=== PATIENT | female | born 1930 | race Caucasian/White ===

== ENCOUNTER 2016-10-27 20:51 | Inpatient (IN) | payer MEDICARE, OTHER ==
[~2016-10-27] VITALS: Ht 152.4 cm; Wt 60.8 kg
[~2016-10-27 20:51] MED LIST: ANTIVERT12.5 MG ORAL; BACITRACIN15 GM TOPIC; COUMADIN2 MG ORAL; CYCLOBENZAPRINE10 MG ORAL; DOCUSATE SODIU100 MG ORAL; LEXAPRO10 MG ORAL; LISINOPRIL40 MG ORAL; METOPROLOL SUCC50 MG ORAL; NORVASC5 MG ORAL; PRESERVISION A1 EACH PO; RANITIDINE HCL150 MG ORAL; SYSTANE 0.3-0.1 EAC1 OP; TYLENOL325 MG ORAL; XANAX0.25 MG ORAL; diclofenac TOPIC
[2016-10-28 02:15] VITALS: BP 106/49
[2016-10-28] MEDS ORDERED: ACETAMINOPHEN-1 EACH ORAL (03:05)
[2016-10-28] MEDS ORDERED: PRAVACHOL80 MG ORAL (03:05)
[2016-10-28] MEDS ORDERED: LASIX40 MG ORAL (03:05)
[2016-10-28] MEDS ORDERED: CLONIDINE HCL0.1 MG PO (03:05)
[2016-10-28] MEDS ORDERED: TRAMADOL HCL50 MG ORAL (03:05)
[2016-10-28] MEDS ORDERED: PROTONIX40 MG ORAL (03:05)
[2016-10-28] MEDS ORDERED: Warfarin Sod PO (03:05)
[2016-10-28] MEDS ORDERED: POTASSIUM CHLO10 ME3 ORAL (03:05)
[2016-10-28] MEDS ORDERED: Alprazolam PO (03:05)
[2016-10-28 04:00] VITALS: BP 112/45
[2016-10-28] MEDS ORDERED: Nitroglycerin Subl 0.4mg tab (Bottle Of 25) SL PRN (07:45)
[2016-10-28 08:00] VITALS: BP 136/52
[2016-10-28] MEDS ORDERED: ALPRAZolam 0.25mg tab ORAL PRN (08:00)
[2016-10-28] MEDS: Docusate 100mg tablet ORAL SCH (08:39)
[2016-10-28 08:59] LABS: BASOPHILS % (AUTO) 0.7 % (0.0-2.0); EOSINOPHILS % (AUTO) 0.4 % (0.0-3.0); LYMPHOCYTES % (AUTO) 18.8 % (20.0-45.0); MEAN CORPUSCULAR HEMOGLOBIN 26.7 PG (27.0-31.0); MEAN CORPUSCULAR HGB CONC 31.1 G/DL (32.0-36.0); MEAN CORPUSCULAR VOLUME 86 FL (80-99); MEAN PLATELET VOLUME 6.4 FL (6.5-10.1); MONOCYTES % (AUTO) 9.6 % (1.0-10.0); NEUTROPHILS % (AUTO) 70.4 % (45.0-75.0); PLATELET COUNT 199 K/UL (150-450); RED BLOOD COUNT 3.87 M/UL (4.20-5.40); RED CELL DISTRIBUTION WIDTH 15.4 % (11.6-14.8)
[2016-10-28 09:41] LABS: INR 3.3 (0.9-1.1); PROTHROMBIN TIME 34.6 SEC (9.30-11.50)
[2016-10-28 09:42] LABS: TROPONIN I < 0.30 ng/mL (<=0.30)
[2016-10-28 09:46] LABS: ALANINE AMINOTRANSFERASE 11 U/L (3-33); ALBUMIN/GLOBULIN RATIO 1.2 (1.0-2.7); ANION GAP 12 (5-15); ASPARTATE AMINO TRANSFERASE 20 U/L (5-40); CALCIUM 9.3 mg/dL (8.6-10.2); CARBON DIOXIDE 34 mEQ/L (20-30); CHLORIDE 101 mEQ/L (98-107); HEMOLYSIS 1; MAGNESIUM 1.8 mg/dL (1.7-2.5); PHOSPHORUS 4.2 mg/dL (2.5-4.8); POTASSIUM 3.7 mEQ/L (3.4-4.9); SODIUM 147 mEQ/L (135-145)
[2016-10-28 12:00] VITALS: BP 109/42
--- NOTE | 2016-10-28 12:13 | History & Physical ---
History and Physical History & Physicial Dictated for Int Med-Dr Gonzales no. [id number]. LUCA DUNBAR Oct 28, 2016 12:13
--- NOTE | 2016-10-28 13:33 | Diagnostic Imaging Report ---
Clinical Indication: Chest pain Technique: Spiral acquisitions obtained through the chest. No IV contrast utilized, referring physician request. Multiplanar reconstructions generated. Total dose length product 543 mGycm. CTDIvol(s) 15 mGy Comparison: None Findings:There is a large right pleural effusion, occupying most of the right hemithorax. There is near-complete atelectasis due to compression of the right lower lobe, and compressive atelectasis of significant portions of the right middle lobe. Is also some peripheral atelectasis in the right upper lobe. There is a smaller but still sizable left-sided pleural effusion, with some resultant atelectatic changes of the left lung. There is generalized interstitial congestion and diffuse groundglass opacity, likely reflecting pulmonary edema. The heart is mildly enlarged. There is a left chest pacemaker. No pericardial effusion. There are dense aortic root calcifications. There are mediastinal sutures and possibly an aortic valve prosthesis. There are enlarged paratracheal lymph nodes, the largest measuring 2.3 cm long axis dimension. Included included portions of the thyroid are unremarkable. No axillary or chest wall mass or adenopathy. There is evidence of thoracolumbar joint spinal surgery. There is mild anterior wedge compression fracture deformity of the T8 vertebral body. There are degenerative spondylosis changes. The included upper abdominal anatomy is remarkable for the presence of multiple cysts. There are gallstones incidentally noted Impression: Large bilateral pleural effusions, right greater than left. Pulmonary parenchymal compressive atelectatic changes as a result, as described Generalized interstitial congestion and diffuse groundglass opacity, nonspecific but most likely represent pulmonary edema Mild cardiomegaly Paratracheal lymphadenopathy. Appearance nonspecific, could be reactive or neoplastic Postsurgical changes, as described, including pacemaker, prior median sternotomy, prior thoracolumbar junction fusion Mild T8 compression fracture deformity, age indeterminate. Consider MRI if this is considered clinically relevant Incidental findings as noted, including hepatic cysts The CT scanner at [facility] is accredited by the [employer] and the scans are performed using protocols designed to limit radiation exposure to as low as reasonably achievable to attain images of sufficient resolution adequate for diagnostic evaluation.
--- NOTE | 2016-10-28 15:02 | Cardiac Electrophysiology PN ---
Subjective Subjective [id number] Objective Last 24 Hour Vital Signs Date Time Temp Pulse Resp B/P Pulse Ox O2 Delivery O2 Flow Rate FiO2 10/28/16 12:00 97.0 60 18 109/42 97 Nasal Cannula 2.0 63 10/28/16 11:35 65 10/28/16 08:39 60 134/52 10/28/16 08:00 97.3 63 17 136/52 97 Nasal Cannula 2.0 63 10/28/16 07:40 60 10/28/16 04:00 97.0 60 20 112/45 96 Nasal Cannula 2.0 10/28/16 04:00 60 10/28/16 02:15 97.9 60 20 106/49 97 Nasal Cannula 2.0 10/28/16 02:15 66 Intake and Output 10/27/16 10/28/16 19:00 07:00 Output Total 350 ml Balance -350 ml Output Urine Total 350 ml Laboratory Tests Test 10/28/16 08:45 White Blood Count 8.0 K/UL (4.8-10.8) Red Blood Count 3.87 M/UL (4.20-5.40) L Hemoglobin 10.3 G/DL (12.0-16.0) L Hematocrit 33.2 % (37.0-47.0) L Mean Corpuscular Volume 86 FL (80-99) Mean Corpuscular Hemoglobin 26.7 PG (27.0-31.0) L Mean Corpuscular Hemoglobin Concent 31.1 G/DL (32.0-36.0) L Red Cell Distribution Width 15.4 % (11.6-14.8) H Platelet Count 199 K/UL (150-450) Mean Platelet Volume 6.4 FL (6.5-10.1) L Neutrophils (%) (Auto) 70.4 % (45.0-75.0) Lymphocytes (%) (Auto) 18.8 % (20.0-45.0) L Monocytes (%) (Auto) 9.6 % (1.0-10.0) Eosinophils (%) (Auto) 0.4 % (0.0-3.0) Basophils (%) (Auto) 0.7 % (0.0-2.0) Prothrombin Time 34.6 SEC (9.30-11.50) H Prothromb Time International Ratio 3.3 (0.9-1.1) H Activated Partial Thromboplast Time 37 SEC (23-33) H Sodium Level 147 mEQ/L (135-145) H Potassium Level 3.7 mEQ/L (3.4-4.9) Chloride Level 101 mEQ/L (98-107) Carbon Dioxide Level 34 mEQ/L (20-30) H Anion Gap 12 (5-15) Blood Urea Nitrogen 19 mg/dL (7-23) Creatinine 1.0 mg/dL (0.5-0.9) H Estimat Glomerular Filtration Rate mL/min (>60) Glucose Level 95 mg/dL (74-106) Calcium Level 9.3 mg/dL (8.6-10.2) Phosphorus Level 4.2 mg/dL (2.5-4.8) Magnesium Level 1.8 mg/dL (1.7-2.5) Total Bilirubin 0.4 mg/dL (0.0-1.2) Aspartate Amino Transf (AST/SGOT) 20 U/L (5-40) Alanine Aminotransferase (ALT/SGPT) 11 U/L (3-33) Alkaline Phosphatase 42 U/L (35-104) Troponin I < 0.30 ng/mL (<=0.30) Pro-B-Type Natriuretic Peptide 2971 pg/mL (0-450) H Total Protein 7.0 g/dL (6.6-8.7) Albumin 3.9 g/dL (3.5-5.2) Globulin 3.1 g/dL Albumin/Globulin Ratio 1.2 (1.0-2.7) BILL GILES Oct 28, 2016 15:02
[2016-10-28 16:00] VITALS: BP 127/58
--- NOTE | 2016-10-28 16:05 | Consultation ---
History of Present Illness General Date patient seen: Oct 28, 2016 Referring physician: Dr. Gonzales Reason for Consultation: dyspnea Present Illness HPI 86 year old female with hx of CHF, pace maker who used to be on daily dose of diuretics, the dose was decreases because of the inconvenience of frequent urination. She developed gradual dyspnea and was taken to [facility] where she was diagnosed to have acute exacerbation of CHF. After initial treatment she was transferred [place] [facility] [place]. she is currently laying down flat, in no acute distress, stating that she feels much better now than a few hours ago. Allergies: Coded Allergies: No Known Allergies (Unverified , 08/30/14) Medication History Scheduled Amlodipine Besylate (Norvasc), 5 MG ORAL DAILY, (Reported) Docusate Sodium* (Docusate Sodium*), 100 MG ORAL DAILY, (Reported) Escitalopram Oxalate* (Lexapro*), 10 MG ORAL DAILY, (Reported) Furosemide* (Lasix*), 40 MG ORAL DAILY, (Reported) Lisinopril* (Lisinopril*), 40 MG ORAL BID, (Reported) Metoprolol Succinate* (Metoprolol Succinate*), 50 MG ORAL DAILY, (Reported) Pantoprazole* (Protonix*), 40 MG ORAL DAILY, (Reported) Potassium Chloride (Potassium Chloride), 10 MEQ ORAL DAILY, (Reported) Pravastatin Sod (Pravachol), 80 MG ORAL BEDTIME, (Reported) [Warfarin Sod*], 3 MG PO DAILY, (Reported) Scheduled PRN Acetaminophen (Tylenol), 500 MG ORAL Q6H PRN for Fever/Headache/Mild Pain, ( Reported) Acetaminophen With Codeine #2 Tablet (Acetaminophen With Codeine #2 Tablet), 1 TAB ORAL for For Cough, (Reported) Bacitracin (Bacitracin), 1 APPLIC TOPIC THREE TIMES A DAY PRN for wound, ( Reported) Clonidine Hcl (Clonidine Hcl), 0.1 MG PO for For High Blood Pressure, (Reported) Tramadol Hcl* (Ultram*), 100 MG ORAL for For Pain, (Reported) [Alprazolam*], 0.25 MG PO DAILY PRN for For Anxiety, (Reported) Discontinued Medications Acetaminophen (Tylenol), 650 MG ORAL Q6H PRN for For Pain Discontinued Reason: Therapy completed Alprazolam* (Xanax*), 0.125 MG ORAL BID PRN for For Anxiety, (Reported) Discontinued Reason: Prescription changed Cyclobenzaprine Hcl* (Flexeril*), 10 MG ORAL THREE TIMES A DAY Discontinued Reason: Therapy completed Meclizine Hcl* (Antivert*), 12.5 MG ORAL QHS, (Reported) Discontinued Reason: Therapy completed Propylene Glycol/Peg 400/Pf (Systane 0.3-0.4% Eye Drops), 1 EACH OP NEEDED PRN for Dry Eyes, (Reported) Discontinued Reason: Therapy completed Ranitidine Hcl* (Zantac*), 150 MG ORAL DAILY, (Reported) Discontinued Reason: Therapy completed Vit A/Vit C/Vit E/Zinc/Copper (Preservision Areds Softgel), 1 EACH PO BID, ( Reported) Discontinued Reason: Therapy completed Warfarin Sod* (Coumadin*), 4 MG ORAL DAILY, (Reported) Discontinued Reason: Prescription changed [diclofenac], 3 % TOPIC 4x/day PRN for For Pain, (Reported) Discontinued Reason: Therapy completed Patient History Healthcare decision maker Resuscitation status Full Code Advanced Directive on File Past Medical/Surgical History Past Medical/Surgical History: (1) CHF (congestive heart failure) (2) Pacemaker Review of Systems All Other Systems: negative except mentioned in HPI Physical Exam General Appearance: WD/WN, mild distress Lines, tubes and drains: central line Neck: normal alignment Breasts: no masses Cardiovascular/Chest: normal peripheral pulses Abdomen: normal bowel sounds, non tender Genitourinary/Rectal: normal genital exam Last 24 Hour Vital Signs Date Time Temp Pulse Resp B/P Pulse Ox O2 Delivery O2 Flow Rate FiO2 10/28/16 12:00 97.0 60 18 109/42 97 Nasal Cannula 2.0 63 10/28/16 11:35 65 10/28/16 08:39 60 134/52 10/28/16 08:00 97.3 63 17 136/52 97 Nasal Cannula 2.0 63 10/28/16 07:40 60 10/28/16 04:00 97.0 60 20 112/45 96 Nasal Cannula 2.0 10/28/16 04:00 60 10/28/16 02:15 97.9 60 20 106/49 97 Nasal Cannula 2.0 10/28/16 02:15 66 Intake and Output 10/27/16 10/28/16 19:00 07:00 Output Total 350 ml Balance -350 ml Output Urine Total 350 ml Laboratory Tests Test 10/28/16 08:45 White Blood Count 8.0 K/UL (4.8-10.8) Red Blood Count 3.87 M/UL (4.20-5.40) L Hemoglobin 10.3 G/DL (12.0-16.0) L Hematocrit 33.2 % (37.0-47.0) L Mean Corpuscular Volume 86 FL (80-99) Mean Corpuscular Hemoglobin 26.7 PG (27.0-31.0) L Mean Corpuscular Hemoglobin Concent 31.1 G/DL (32.0-36.0) L Red Cell Distribution Width 15.4 % (11.6-14.8) H Platelet Count 199 K/UL (150-450) Mean Platelet Volume 6.4 FL (6.5-10.1) L Neutrophils (%) (Auto) 70.4 % (45.0-75.0) Lymphocytes (%) (Auto) 18.8 % (20.0-45.0) L Monocytes (%) (Auto) 9.6 % (1.0-10.0) Eosinophils (%) (Auto) 0.4 % (0.0-3.0) Basophils (%) (Auto) 0.7 % (0.0-2.0) Prothrombin Time 34.6 SEC (9.30-11.50) H Prothromb Time International Ratio 3.3 (0.9-1.1) H Activated Partial Thromboplast Time 37 SEC (23-33) H Sodium Level 147 mEQ/L (135-145) H Potassium Level 3.7 mEQ/L (3.4-4.9) Chloride Level 101 mEQ/L (98-107) Carbon Dioxide Level 34 mEQ/L (20-30) H Anion Gap 12 (5-15) Blood Urea Nitrogen 19 mg/dL (7-23) Creatinine 1.0 mg/dL (0.5-0.9) H Estimat Glomerular Filtration Rate mL/min (>60) Glucose Level 95 mg/dL (74-106) Calcium Level 9.3 mg/dL (8.6-10.2) Phosphorus Level 4.2 mg/dL (2.5-4.8) Magnesium Level 1.8 mg/dL (1.7-2.5) Total Bilirubin 0.4 mg/dL (0.0-1.2) Aspartate Amino Transf (AST/SGOT) 20 U/L (5-40) Alanine Aminotransferase (ALT/SGPT) 11 U/L (3-33) Alkaline Phosphatase 42 U/L (35-104) Troponin I < 0.30 ng/mL (<=0.30) Pro-B-Type Natriuretic Peptide 2971 pg/mL (0-450) H Total Protein 7.0 g/dL (6.6-8.7) Albumin 3.9 g/dL (3.5-5.2) Globulin 3.1 g/dL Albumin/Globulin Ratio 1.2 (1.0-2.7) Height (Feet): 5 Weight (Pounds): 138 Medications Current Medications Medications (Trade) Dose Ordered Sig/Nataliia Route PRN Reason Start Time Stop Time Status Last Admin Dose Admin Acetaminophen 650 mg 650 mg Q6H PRN ORAL Mild Pain/Temp > 100.5 10/28/16 08:00 11/27/16 07:59 Alprazolam (Xanax) 0.25 mg DAILY PRN ORAL For Anxiety 10/28/16 08:00 11/04/16 07:59 Azithromycin (Zithromax) 250 mg Q24H ORAL 10/28/16 21:00 10/31/16 21:01 Ceftriaxone Sodium/Dextrose (Rocephin/D5W) 55 ml @ 110 mls/hr Q24H IVPB 10/28/16 20:00 11/04/16 19:59 Clonidine HCl (Catapres) 0.1 mg EVERY 6 HOURS PRN ORAL For High Blood Pressure 10/28/16 08:00 11/27/16 07:59 Dextrose (Dextrose 50%) STAT PRN IV Hypoglycemia 10/28/16 07:45 11/27/16 07:44 Docusate Sodium (Colace) 100 mg DAILY ORAL 10/28/16 09:00 11/27/16 08:59 10/28/16 08:39 Escitalopram Oxalate (Lexapro) 10 mg DAILY ORAL 10/28/16 09:00 11/27/16 08:59 10/28/16 08:39 Furosemide (Lasix) 20 mg BID IV 10/28/16 09:00 11/27/16 08:59 10/28/16 08:39 Metoprolol Succinate (Toprol XL) 50 mg DAILY ORAL 10/28/16 09:00 11/27/16 08:59 10/28/16 08:39 Multivitamins (Multivitamins) 1 tab DAILY ORAL 10/28/16 09:00 11/27/16 08:59 10/28/16 08:39 Nitroglycerin (Ntg) 0.4 mg Q5M PRN SL Prn Chest Pain 10/28/16 07:45 11/27/16 07:44 Pantoprazole (Protonix) 40 mg DAILY ORAL 10/28/16 09:00 11/27/16 08:59 10/28/16 08:39 Potassium Chloride (K-Dur) 10 meq DAILY ORAL 10/28/16 09:00 11/27/16 08:59 10/28/16 08:46 Pravastatin Sodium (Pravachol) 80 mg BEDTIME ORAL 10/28/16 21:00 11/27/16 20:59 Tramadol HCl (Ultram) 100 mg EVERY 8 HOURS PRN ORAL Moderate Pain (Pain Scale 4-6) 10/28/16 08:00 11/04/16 07:59 Warfarin Sodium (Coumadin per pharmacy) 1 ea DAILY PRN MISC Per rx protocol 10/28/16 08:00 11/27/16 07:59 Assessment/Plan Problem List: (1) SOB (shortness of breath) ICD Codes: R06.02 - Shortness of breath SNOMED: 133055210 (2) CHF (congestive heart failure) ICD Codes: I50.9 - Heart failure, unspecified SNOMED: 84664890 (3) Pacemaker ICD Codes: Z95.0 - Presence of cardiac pacemaker SNOMED: 316331240, 564767815 Assessment/Plan cxr stat f/u electrolytes and intake/output diuretics respiratory treatment dvt prophylaxis echo cardiogram repeat cxr in a few days. RUSS ANDRADE Oct 28, 2016 16:05
--- NOTE | 2016-10-28 16:41 | Diagnostic Imaging Report ---
Indication: DYSPNEA Technique: One view of the chest Comparison: 08/30/2014, also chest CT of earlier the same day Findings: Interim development of bilateral pleural effusions, larger on the right on the left. There is interstitial edema. The heart is mildly enlarged. There is a left chest pacemaker. There are median sternotomy sutures. Findings are similar to those described on prior CT Impression: Bilateral pleural effusions, right greater than left Interstitial edema
--- NOTE | 2016-10-28 17:09 | History and Physical Report ---
DATE OF ADMISSION: 10/28/2016 CHIEF COMPLAINT: The patient is an 86-year-old, Georgian speaking female, who presents with complaint of shortness of breath. HISTORY OF PRESENT ILLNESS: The patient has a history of congestive heart failure. The patient is status post heart valve replacement, however, she is unsure of which heart valve was replaced. The patient states she became short of breath yesterday about 1 p.m. She was unable to walk more than a few steps. The patient was initially transported to [facility] emergency room. The patient was transferred to [facility] for insurance purposes. The patient is admitted for shortness of breath and congestive heart failure. REVIEW OF SYSTEMS: Constitutional: The patient denies weight loss or weight gain. The patient denies fevers or chills. HEENT: The patient denies ear or throat pain. The patient denies headache. Cardiovascular: The patient denies palpitation or chest pain. Chest: The patient complains of shortness of breath as above. The patient denies wheezing. Abdominal: The patient denies nausea, vomiting, diarrhea, or constipation. Genitourinary: The patient denies dysuria or increased frequency of urination. Neuromuscular: The patient denies seizures or generalized weakness. PAST MEDICAL HISTORY: Significant for, 1. Hypertension. 2. Congestive heart failure. PAST SURGICAL HISTORY: Significant for, 1. Heart valve replacement, however, the patient is unsure which valve was replaced. 2. Pacemaker implantation. CURRENT MEDICATIONS: 1. Nitroglycerin 1 inch applied daily. 2. Norvasc 5 mg one tablet p.o. daily. 3. Colace 100 mg one tablet p.o. daily. 4. Protonix 40 mg one tablet p.o. daily. 5. Lasix 40 mg one tablet p.o. daily. 6. Potassium chloride 10 mEq one tablet p.o. daily. 7. Lexapro 10 mg one tablet p.o. daily. 8. Coumadin 3 mg one tablet p.o. daily. 9. Pravachol 80 mg one tablet p.o. daily. 10. Metoprolol 50 mg one tablet p.o. daily. 11. Xanax 0.25 mg one tablet p.o. p.r.n. anxiety. 12. Tramadol 50 mg one tablet p.o. daily. 13. Clonidine 0.1 mg one tablet p.o. p.r.n. ALLERGIES: No known drug allergies. SOCIAL HISTORY: The patient is a and lives alone. The patient has caregivers 8 hours daily. The patient denies tobacco or alcohol use. PHYSICAL EXAMINATION: VITAL SIGNS: Temperature 97.0, respirations 20, pulse 60, blood pressure 112/45, and pulse oximetry 96% on 2 liters of nasal cannula. GENERAL: The patient is a well-developed, well-nourished, white female, in no apparent distress. HEENT: Eyes, pupils are equal and responsive to light and accommodation. Extraocular movements are intact. NECK: Supple without lymphadenopathy. CHEST: Few crackles on the right lung base, otherwise, clear to auscultation bilaterally without wheezes or rales. CARDIOVASCULAR: Regular rhythm and rate. S1 and S2 are normal without murmurs, rubs, or gallops. ABDOMEN: Soft, nontender, and nondistended. Positive bowel sounds. No evidence of hepatosplenomegaly. No rebound or guarding noted. EXTREMITIES: Negative for clubbing, cyanosis, or edema. RECTAL/GENITAL: Refused. NEUROLOGIC: Cranial nerves II through XII are grossly intact without focal deficits. Motor strength is 5/5 bilaterally. Deep tendon reflexes are 2+ plantar. LABORATORY STUDIES: WBC 8.0, hemoglobin 10.3, hematocrit 33.2, and platelets 199,000. Sodium 127, potassium 3.7, chloride 101, CO2 34, BUN 19, creatinine 1.0, and glucose 95. BNP elevated at 2971 and troponin 7.3. Chest x-ray is pending. ASSESSMENT: This is a 86-year-old white female with, 1. Shortness of breath. 2. Congestive heart failure. 3. Hypertension. 4. Shortness of breath. 5. Congestive heart failure. 6. Hypertension. 7. Hypercholesterolemia. 8. Depression. TREATMENT: 1. Shortness of breath/congestive heart failure. Cardiology consultation is pending with Dr. Juan Miguel Cordero. An echocardiogram is pending. We will follow recommendations of Cardiology. Serial troponin and BNP will be performed. 2. Hypertension. Continue metoprolol as above. 3. Hypercholesteremia. Continue Pravachol as above. 4. Depression. Continue Lexapro as above. Carmine Malcolm M.D. DR: TYREE JOB#: [id number] CC:
[2016-10-28] MEDS: traMADol 50mg tab ORAL PRN (17:50)
--- NOTE | 2016-10-28 19:36 | Cardiology Report ---
APPROVED REPORT EXAM: Two-dimensional and M-mode echocardiogram with Doppler and color Doppler. INDICATION Congestive Heart Failure M-Mode DIMENSIONS IVSd1.4 (0.7-1.1cm)Left Atrium (MM)5.4 (1.6-4.0cm) LVDd5.2 (3.5-5.6cm)Aortic Root1.8 (2.0-3.7cm) PWd1.1 (0.7-1.1cm)Aortic Cusp Exc.1.5 (1.5-2.0cm) LVDs3.8 (2.5-4.0cm) PWs1.3 cm Technically difficult study due to poor acoustic windows Normal left ventricular chamber size, systolic function and wall motion to extent visualized. Left ventricular ejection fraction estimated to be 55 %. Mild left ventricular hypertrophy. No evidence of pericardial effusion. Possible pleural effusion. Mild left atrial size enlargement. Mild right ventricular and atrial enlargement. Left ventricle D-shape, consistent with right ventricle volume and pressure overload. Mild focal aortic valve sclerosis with adequate cusp excursion. Moderately thickened mitral valve leaflets with minimal excursion. Heavy mitral annulus and aortic root calcification. Normal pulmonic valve structure. Normal tricuspid valve structure. Probable pacemaker wire present in the right side chambers. IVC dilated at 2.4 cm with minimal physiological collapse, estimated RAP is 15 mmHg. A color flow and spectral Doppler study was performed and revealed: Mild aortic insufficiency. Severe mitral regurgitation. Mitral P1/2 time of 116 m/s is compatible with a mitral valve area of 1.9 cm2. Peak mitral valve diastolic gradient of 18 mmHg and a mean gradient of 5 mmHg. Mild mitral stenosis. Left ventricular diastolic function could not be determined due to A-Fib. Severe, tricuspid regurgitation. Tricuspid systolic velocities suggests peak right ventricular systolic pressure of 98 mmHg, consistent with severe pulmonary hypertension. Severe pulmonic regurgitation present.
[2016-10-28 20:00] VITALS: BP 145/55
[2016-10-28] MEDS: Azithromycin 250mg tab ORAL SCH (20:52)
[2016-10-28] MEDS: cefTRIAXone 1 GM in D5W 55 ML IVPB SCH (20:53)
--- NOTE | 2016-10-28 22:29 | Consultation ---
DATE OF CONSULTATION: 10/28/2016 CARDIOLOGY ELECTROPHYSIOLOGY CONSULTATION CONSULTING PHYSICIAN: Tong Márquez M.D. REFERRING PHYSICIAN: Tony Gonzales M.D. REASON FOR CONSULTATION: Management of congestive heart failure, valve replacement, atrial fibrillation, hypertension, and congestive heart failure. HISTORY OF PRESENT ILLNESS: The patient is a very pleasant 86-year-old Afghan lady with history of hypertension, congestive heart failure as well as history of pacemaker as well as valve replacement, who was taken to [facility] for increasing shortness of breath. 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 The patient was evaluated at [place] and then was transferred to [facility] for further evaluation. At the time of my evaluation, the patient is feeling better. Denies any chest pain and shortness of breath is improving. PAST MEDICAL HISTORY: 1. Hypertension. 2. Pacemaker. 3. Congestive heart failure. 4. History of valve replacement, but the patient and family do not know which valve. MEDICATIONS: As an outpatient include: 1. Norvasc. 2. Protonix. 3. Lasix. 4. Warfarin. 5. Pravachol. 6. Toprol-XL 50 mg. 7. Clonidine. ALLERGIES: She has no known drug allergies. SOCIAL HISTORY: She lives at home with a caregiver. She does not smoke or drink alcohol. FAMILY HISTORY: Noncontributory. REVIEW OF SYSTEMS: Review of system was performed and was negative other than what was mentioned in the history of present illness. PHYSICAL EXAMINATION: VITAL SIGNS: Blood pressure is 109/42, pulse 60, respirations 18, and she is afebrile. HEAD AND NECK: Mild JVD. LUNGS: Clear. CARDIOVASCULAR: Shows sternotomy is intact. The left subclavian pacemaker is intact. ABDOMEN: Soft. EXTREMITIES: Have no pitting edema. LABORATORY AND DIAGNOSTIC DATA: Her EKG showed underlying atrial fibrillation, ventricular paced rhythm. Her labs show white count of 8, hemoglobin 10.2, hematocrit 33, and platelet count is 199,000. Sodium 147, potassium 3.7, BUN 9, creatinine 1, and glucose 95. BNP 3971. Troponin is negative and her INR is 3.3. ASSESSMENT AND PLAN: 1. Status post valve replacement. The nature of the valve is not clear at this time. I am not sure if it is a prosthetic valve or porcine or bovine valve. Regardless, the patient is on full anticoagulation with Coumadin and especially that she also has atrial fibrillation. We will get echocardiogram for further evaluation. 2. Congestive heart failure. Start the patient on Lasix 40 mg IV b.i.d. Continue to follow the patient clinically. 3. Atrial fibrillation. The rate is controlled on Toprol-XL 50 mg daily. mostly paced. Continue anticoagulation with Coumadin per pharmacy. 4. Hypertension. Continue Toprol and p.r.n. clonidine. 5. pneumonia, on Zithromax and Rocephin. 6. Hyperlipidemia, on Pravachol. Thank you very much, Dr. Gonzales, for allowing me to participate in the care of this patient. Please do not hesitate to contact me for any questions regarding my evaluation. Tong Márquez M.D. DR: MAURA JOB#: [id number] CC:
[2016-10-29 00:31] VITALS: BP 110/55
[2016-10-29 04:12] VITALS: BP 120/78
[2016-10-29] MEDS ORDERED: Miralax 17gm pkt ORAL PRN (06:15)
[2016-10-29 08:14] VITALS: BP 145/59
[2016-10-29] MEDS: traMADol 50mg tab ORAL PRN (09:06)
[2016-10-29] MEDS: Docusate 100mg tablet ORAL SCH (09:07)
[2016-10-29 09:40] LABS: BASOPHILS % (AUTO) 0.7 % (0.0-2.0); LYMPHOCYTES % (AUTO) 12.3 % (20.0-45.0); MEAN CORPUSCULAR HEMOGLOBIN 27.1 PG (27.0-31.0); MEAN CORPUSCULAR VOLUME 87 FL (80-99); MEAN PLATELET VOLUME 6.8 FL (6.5-10.1); PLATELET COUNT 206 K/UL (150-450); RED BLOOD COUNT 3.74 M/UL (4.20-5.40); RED CELL DISTRIBUTION WIDTH 15.4 % (11.6-14.8); WHITE BLOOD COUNT 8.8 K/UL (4.8-10.8)
[2016-10-29 09:49] LABS: INR 2.6 (0.9-1.1); PROTHROMBIN TIME 27.6 SEC (9.30-11.50)
[2016-10-29 09:53] LABS: ANION GAP 9 (5-15); CARBON DIOXIDE 37 mEQ/L (20-30); CHLORIDE 97 mEQ/L (98-107); HEMOLYSIS 1; POTASSIUM 3.8 mEQ/L (3.4-4.9); SODIUM 143 mEQ/L (135-145)
[2016-10-29 10:27] LABS: TROPONIN I < 0.30 ng/mL (<=0.30)
[2016-10-29] MEDS ORDERED: DuoNeb 0.5-3(2.5)mg/3ml neb HHN PRN (11:30)
[2016-10-29 11:38] VITALS: BP 148/69
--- NOTE | 2016-10-29 15:35 | Pulmonology Progress Note ---
Assessment/Plan Problems: (1) SOB (shortness of breath) (2) Pleural effusion (3) Pacemaker (4) CHF (congestive heart failure) Assessment/Plan continue diuresis watch intake and output check electrolytes f/u cxr and bnp in am Subjective ROS Limited/Unobtainable: No Interval Events: c/o epigastric pain Constitutional: Reports: no symptoms Allergies: Coded Allergies: No Known Allergies (Unverified , 08/30/14) Objective Last 24 Hour Vital Signs Date Time Temp Pulse Resp B/P Pulse Ox O2 Delivery O2 Flow Rate FiO2 10/29/16 12:00 60 10/29/16 11:39 62 20 97 Nasal Cannula 2.0 28 10/29/16 11:38 97.5 60 18 148/69 95 Nasal Cannula 2.0 10/29/16 11:30 97 Nasal Cannula 2.0 10/29/16 11:30 60 18 Nasal Cannula 2.0 10/29/16 11:30 60 18 97 Nasal Cannula 2.0 10/29/16 11:30 Nasal Cannula 2.0 10/29/16 09:07 62 145/59 10/29/16 08:14 97.0 62 18 145/59 97 Nasal Cannula 2.0 10/29/16 08:00 60 10/29/16 04:12 97.6 64 24 120/78 96 Nasal Cannula 2.0 10/29/16 04:00 60 10/29/16 00:31 97.5 60 20 110/55 96 Nasal Cannula 2.0 10/28/16 20:00 60 10/28/16 20:00 97.3 60 19 145/55 89 Room Air 10/28/16 19:00 97.5 10/28/16 16:00 97.5 77 19 127/58 Nasal Cannula 2.0 98 Intake and Output 10/28/16 10/29/16 19:00 07:00 Intake Total 350 ml 110 ml Output Total 650 ml 1600 ml Balance -300 ml -1490 ml Intake Oral 350 ml IV Total 110 ml Output Urine Total 650 ml 1600 ml General Appearance: WD/WN HEENT: normocephalic, atraumatic Respiratory/Chest: chest wall non-tender, lungs clear Cardiovascular: normal peripheral pulses, normal rate Abdomen: normal bowel sounds, no organomegaly Genitourinary: normal external genitalia Extremities: no cyanosis Skin: no rash Laboratory Tests 10/29/16 09:00: White Blood Count 8.8, Red Blood Count 3.74L, Hemoglobin 10.1L, Hematocrit 32.7L , Mean Corpuscular Volume 87, Mean Corpuscular Hemoglobin 27.1, Mean Corpuscular Hemoglobin Concent 31.0L, Red Cell Distribution Width 15.4H, Platelet Count 206, Mean Platelet Volume 6.8, Neutrophils (%) (Auto) 77.0H, Lymphocytes (%) (Auto) 12.3L, Monocytes (%) (Auto) 10.0, Eosinophils (%) (Auto) 0.0, Basophils (%) (Auto) 0.7, Prothrombin Time 27.6H, Prothromb Time International Ratio 2.6H, Sodium Level 143, Potassium Level 3.8, Chloride Level 97L, Carbon Dioxide Level 37H, Anion Gap 9, Blood Urea Nitrogen 23, Creatinine 1.0H, Estimat Glomerular Filtration Rate , Glucose Level 103, Calcium Level 9.0 , Troponin I < 0.30, Pro-B-Type Natriuretic Peptide 2251H Current Medications Medications (Trade) Dose Ordered Sig/Nataliia Route PRN Reason Start Time Stop Time Status Last Admin Dose Admin Acetaminophen 650 mg 650 mg Q6H PRN ORAL Mild Pain/Temp > 100.5 10/28/16 08:00 11/27/16 07:59 Albuterol/ Ipratropium (DuoNeb 0.5-3(2.5)mg/3ml) 3 ml Q4H PRN HHN Shortness of Breath 10/29/16 11:30 11/03/16 11:29 10/29/16 11:30 Alprazolam (Xanax) 0.25 mg DAILY PRN ORAL For Anxiety 10/28/16 08:00 11/04/16 07:59 Azithromycin (Zithromax) 250 mg Q24H ORAL 10/28/16 21:00 10/31/16 21:01 10/28/16 20:52 Ceftriaxone Sodium/Dextrose (Rocephin/D5W) 55 ml @ 110 mls/hr Q24H IVPB 10/28/16 20:00 11/04/16 19:59 10/28/16 20:53 Clonidine HCl (Catapres) 0.1 mg EVERY 6 HOURS PRN ORAL For High Blood Pressure 10/28/16 08:00 11/27/16 07:59 Dextrose (Dextrose 50%) STAT PRN IV Hypoglycemia 10/28/16 07:45 11/27/16 07:44 Docusate Sodium (Colace) 100 mg DAILY ORAL 10/28/16 09:00 11/27/16 08:59 10/29/16 09:07 Escitalopram Oxalate (Lexapro) 10 mg DAILY ORAL 10/28/16 09:00 11/27/16 08:59 10/29/16 09:07 Furosemide (Lasix) 20 mg BID IV 10/28/16 09:00 11/27/16 08:59 10/29/16 09:14 Metoprolol Succinate (Toprol XL) 50 mg DAILY ORAL 10/28/16 09:00 11/27/16 08:59 10/29/16 09:07 Multivitamins (Multivitamins) 1 tab DAILY ORAL 10/28/16 09:00 11/27/16 08:59 10/29/16 09:07 Nitroglycerin (Ntg) 0.4 mg Q5M PRN SL Prn Chest Pain 10/28/16 07:45 11/27/16 07:44 Pantoprazole (Protonix) 40 mg DAILY ORAL 10/28/16 09:00 11/27/16 08:59 10/29/16 09:13 Polyethylene Glycol (Miralax) 17 gm DAILY PRN ORAL Constipation 10/29/16 06:15 11/28/16 06:14 10/29/16 06:20 Potassium Chloride (K-Dur) 10 meq DAILY ORAL 10/28/16 09:00 11/27/16 08:59 10/29/16 09:06 Pravastatin Sodium (Pravachol) 80 mg BEDTIME ORAL 10/28/16 21:00 11/27/16 20:59 10/28/16 20:52 Tramadol HCl (Ultram) 100 mg EVERY 8 HOURS PRN ORAL Moderate Pain (Pain Scale 4-6) 10/28/16 08:00 11/04/16 07:59 10/29/16 09:06 Warfarin Sodium (Coumadin per pharmacy) 1 ea DAILY PRN MISC Per rx protocol 10/28/16 08:00 11/27/16 07:59 Warfarin Sodium (Coumadin) 3 mg COUMADIN ONCE ORAL 10/29/16 17:00 10/29/16 17:01 RUSS ANDRADE Oct 29, 2016 15:35
--- NOTE | 2016-10-29 15:40 | Internal Med Progress Note ---
Subjective Date of Service: Oct 29, 2016 Physician Name Luca Dunbar Attending Physician Tony Gonzales MD Current Medications Medications (Trade) Dose Ordered Sig/Nataliia Route PRN Reason Start Time Stop Time Status Last Admin Dose Admin Acetaminophen 650 mg 650 mg Q6H PRN ORAL Mild Pain/Temp > 100.5 10/28/16 08:00 11/27/16 07:59 Albuterol/ Ipratropium (DuoNeb 0.5-3(2.5)mg/3ml) 3 ml Q4H PRN HHN Shortness of Breath 10/29/16 11:30 11/03/16 11:29 10/29/16 11:30 Alprazolam (Xanax) 0.25 mg DAILY PRN ORAL For Anxiety 10/28/16 08:00 11/04/16 07:59 Azithromycin (Zithromax) 250 mg Q24H ORAL 10/28/16 21:00 10/31/16 21:01 10/28/16 20:52 Ceftriaxone Sodium/Dextrose (Rocephin/D5W) 55 ml @ 110 mls/hr Q24H IVPB 10/28/16 20:00 11/04/16 19:59 10/28/16 20:53 Clonidine HCl (Catapres) 0.1 mg EVERY 6 HOURS PRN ORAL For High Blood Pressure 10/28/16 08:00 11/27/16 07:59 Dextrose (Dextrose 50%) STAT PRN IV Hypoglycemia 10/28/16 07:45 11/27/16 07:44 Docusate Sodium (Colace) 100 mg DAILY ORAL 10/28/16 09:00 11/27/16 08:59 10/29/16 09:07 Escitalopram Oxalate (Lexapro) 10 mg DAILY ORAL 10/28/16 09:00 11/27/16 08:59 10/29/16 09:07 Furosemide (Lasix) 20 mg BID IV 10/28/16 09:00 11/27/16 08:59 10/29/16 09:14 Metoprolol Succinate (Toprol XL) 50 mg DAILY ORAL 10/28/16 09:00 11/27/16 08:59 10/29/16 09:07 Multivitamins (Multivitamins) 1 tab DAILY ORAL 10/28/16 09:00 11/27/16 08:59 10/29/16 09:07 Nitroglycerin (Ntg) 0.4 mg Q5M PRN SL Prn Chest Pain 10/28/16 07:45 11/27/16 07:44 Pantoprazole (Protonix) 40 mg DAILY ORAL 10/28/16 09:00 11/27/16 08:59 10/29/16 09:13 Polyethylene Glycol (Miralax) 17 gm DAILY PRN ORAL Constipation 10/29/16 06:15 11/28/16 06:14 10/29/16 06:20 Potassium Chloride (K-Dur) 10 meq DAILY ORAL 10/28/16 09:00 11/27/16 08:59 10/29/16 09:06 Pravastatin Sodium (Pravachol) 80 mg BEDTIME ORAL 10/28/16 21:00 11/27/16 20:59 10/28/16 20:52 Tramadol HCl (Ultram) 100 mg EVERY 8 HOURS PRN ORAL Moderate Pain (Pain Scale 4-6) 10/28/16 08:00 11/04/16 07:59 10/29/16 09:06 Warfarin Sodium (Coumadin per pharmacy) 1 ea DAILY PRN MISC Per rx protocol 10/28/16 08:00 11/27/16 07:59 Warfarin Sodium (Coumadin) 3 mg COUMADIN ONCE ORAL 10/29/16 17:00 10/29/16 17:01 Allergies: Coded Allergies: No Known Allergies (Unverified , 08/30/14) ROS Limited/Unobtainable: No Constitutional: Reports: no symptoms HEENT: Reports: no symptoms Cardiovascular: Reports: no symptoms Respiratory: Reports: shortness of breath Gastrointestinal/Abdominal: Reports: no symptoms Genitourinary: Reports: no symptoms Neurologic/Psychiatric: Reports: no symptoms Subjective 86 YO F admitted for shortness of Breath, now congestive heart failure. Cover for Juan Gonzales. Objective Last Vital Signs Date Time Temp Pulse Resp B/P Pulse Ox O2 Delivery O2 Flow Rate FiO2 10/29/16 12:00 60 10/29/16 11:39 20 97 Nasal Cannula 2.0 28 10/29/16 11:38 97.5 148/69 General Appearance: no apparent distress, alert, mild distress EENT: PERRL/EOMI, normal ENT inspection, TMs normal Neck: non-tender, normal alignment, supple Cardiovascular: normal peripheral pulses, normal rate, regular rhythm, no gallop/murmur, no JVD Respiratory/Chest: chest wall non-tender, crackles/rales, rhonchi - bilaterally Abdomen: normal bowel sounds, non tender, soft, no organomegaly, no mass Extremities: normal range of motion, non-tender Neurologic: washer operator II-XII grossly normal, no motor/sensory deficits Skin: normal pigmentation, warm/dry Laboratory Tests Test 10/29/16 09:00 White Blood Count 8.8 K/UL (4.8-10.8) Red Blood Count 3.74 M/UL (4.20-5.40) L Hemoglobin 10.1 G/DL (12.0-16.0) L Hematocrit 32.7 % (37.0-47.0) L Mean Corpuscular Volume 87 FL (80-99) Mean Corpuscular Hemoglobin 27.1 PG (27.0-31.0) Mean Corpuscular Hemoglobin Concent 31.0 G/DL (32.0-36.0) L Red Cell Distribution Width 15.4 % (11.6-14.8) H Platelet Count 206 K/UL (150-450) Mean Platelet Volume 6.8 FL (6.5-10.1) Neutrophils (%) (Auto) 77.0 % (45.0-75.0) H Lymphocytes (%) (Auto) 12.3 % (20.0-45.0) L Monocytes (%) (Auto) 10.0 % (1.0-10.0) Eosinophils (%) (Auto) 0.0 % (0.0-3.0) Basophils (%) (Auto) 0.7 % (0.0-2.0) Prothrombin Time 27.6 SEC (9.30-11.50) H Prothromb Time International Ratio 2.6 (0.9-1.1) H Sodium Level 143 mEQ/L (135-145) Potassium Level 3.8 mEQ/L (3.4-4.9) Chloride Level 97 mEQ/L (98-107) L Carbon Dioxide Level 37 mEQ/L (20-30) H Anion Gap 9 (5-15) Blood Urea Nitrogen 23 mg/dL (7-23) Creatinine 1.0 mg/dL (0.5-0.9) H Estimat Glomerular Filtration Rate mL/min (>60) Glucose Level 103 mg/dL (74-106) Calcium Level 9.0 mg/dL (8.6-10.2) Troponin I < 0.30 ng/mL (<=0.30) Pro-B-Type Natriuretic Peptide 2251 pg/mL (0-450) H Intake and Output 10/28/16 10/29/16 19:00 07:00 Intake Total 350 ml 110 ml Output Total 650 ml 1600 ml Balance -300 ml -1490 ml Intake Oral 350 ml IV Total 110 ml Output Urine Total 650 ml 1600 ml Assessment/Plan Problem List: (1) Pleural effusion Assessment & Plan: Bilateral R>L. See pulmonary note. (2) HTN (hypertension) Assessment & Plan: Cont toprol XL (3) Pleural effusion Assessment & Plan: See Pulmonary note. (4) Hypercholesteremia (5) Major depression (6) SOB (shortness of breath) (7) CHF (congestive heart failure) Assessment & Plan: LVEF=55%. see cardiology note. Continue lasix. (8) Pneumonia Assessment & Plan: Continue azithromycin and ceftriaxone. (9) Heart valve replaced Status: not improved LUCA DUNBAR Oct 29, 2016 15:40
[2016-10-29 16:00] VITALS: BP 130/65
--- NOTE | 2016-10-29 16:05 | Cardiac Electrophysiology PN ---
Assessment/Plan Assessment/Plan 1. Status post valve replacement. The nature of the valve is not clear at this time. I am not sure if it is a prosthetic valve or porcine or bovine valve. Regardless, the patient is on full anticoagulation with Coumadin and especially that she also has atrial fibrillation. Echo did not mention any prosthetic valve. 2. Congestive heart failure. Could be due to sevre MR and TR. EF 55%. On Lasix 40 mg IV b.i.d. 3. Atrial fibrillation. The rate is controlled on Toprol-XL 50 mg daily. Continue Coumadin 4. Hypertension. Continue Toprol and p.r.n. clonidine. 5. Pneumonia, on Zithromax and Rocephin. 6. Hyperlipidemia, on Pravachol. MOURA Subjective Subjective Still gets SOB with exertion. No chest pain. Dr Malcolm and sitgonzález at bedside. Objective Last 24 Hour Vital Signs Date Time Temp Pulse Resp B/P Pulse Ox O2 Delivery O2 Flow Rate FiO2 10/29/16 12:00 60 10/29/16 11:39 62 20 97 Nasal Cannula 2.0 28 10/29/16 11:38 97.5 60 18 148/69 95 Nasal Cannula 2.0 10/29/16 11:30 97 Nasal Cannula 2.0 28 10/29/16 11:30 60 18 Nasal Cannula 2.0 28 10/29/16 11:30 60 18 97 Nasal Cannula 2.0 28 10/29/16 11:30 Nasal Cannula 2.0 28 10/29/16 09:07 62 145/59 10/29/16 08:14 97.0 62 18 145/59 97 Nasal Cannula 2.0 10/29/16 08:00 60 10/29/16 04:12 97.6 64 24 120/78 96 Nasal Cannula 2.0 10/29/16 04:00 60 10/29/16 00:31 97.5 60 20 110/55 96 Nasal Cannula 2.0 10/28/16 20:00 60 10/28/16 20:00 97.3 60 19 145/55 89 Room Air 10/28/16 19:00 97.5 10/28/16 16:00 97.5 77 19 127/58 Nasal Cannula 2.0 98 Intake and Output 10/28/16 10/29/16 19:00 07:00 Intake Total 350 ml 110 ml Output Total 650 ml 1600 ml Balance -300 ml -1490 ml Intake Oral 350 ml IV Total 110 ml Output Urine Total 650 ml 1600 ml Laboratory Tests Test 10/29/16 09:00 White Blood Count 8.8 K/UL (4.8-10.8) Red Blood Count 3.74 M/UL (4.20-5.40) L Hemoglobin 10.1 G/DL (12.0-16.0) L Hematocrit 32.7 % (37.0-47.0) L Mean Corpuscular Volume 87 FL (80-99) Mean Corpuscular Hemoglobin 27.1 PG (27.0-31.0) Mean Corpuscular Hemoglobin Concent 31.0 G/DL (32.0-36.0) L Red Cell Distribution Width 15.4 % (11.6-14.8) H Platelet Count 206 K/UL (150-450) Mean Platelet Volume 6.8 FL (6.5-10.1) Neutrophils (%) (Auto) 77.0 % (45.0-75.0) H Lymphocytes (%) (Auto) 12.3 % (20.0-45.0) L Monocytes (%) (Auto) 10.0 % (1.0-10.0) Eosinophils (%) (Auto) 0.0 % (0.0-3.0) Basophils (%) (Auto) 0.7 % (0.0-2.0) Prothrombin Time 27.6 SEC (9.30-11.50) H Prothromb Time International Ratio 2.6 (0.9-1.1) H Sodium Level 143 mEQ/L (135-145) Potassium Level 3.8 mEQ/L (3.4-4.9) Chloride Level 97 mEQ/L (98-107) L Carbon Dioxide Level 37 mEQ/L (20-30) H Anion Gap 9 (5-15) Blood Urea Nitrogen 23 mg/dL (7-23) Creatinine 1.0 mg/dL (0.5-0.9) H Estimat Glomerular Filtration Rate mL/min (>60) Glucose Level 103 mg/dL (74-106) Calcium Level 9.0 mg/dL (8.6-10.2) Troponin I < 0.30 ng/mL (<=0.30) Pro-B-Type Natriuretic Peptide 2251 pg/mL (0-450) H Objective HEAD AND NECK: Mild JVD. LUNGS: Clear. CARDIOVASCULAR: Shows sternotomy is intact. The left subclavian pacemaker is intact. ABDOMEN: Soft. EXTREMITIES: Have no pitting edema. BILL GILES Oct 29, 2016 16:05
[2016-10-29] MEDS ORDERED: Warfarin Sodium 3mg ORAL ONE (17:00)
[2016-10-29] MEDS: Sucralfate 1gm tab ORAL SCH ×2 (17:12→20:47)
[2016-10-29 20:00] VITALS: BP 142/60
[2016-10-29] MEDS: cefTRIAXone 1 GM in D5W 55 ML IVPB SCH (20:44)
[2016-10-29] MEDS: Azithromycin 250mg tab ORAL SCH (20:46)
[2016-10-30 00:20] VITALS: BP 122/75
[2016-10-30 04:19] VITALS: BP 115/73
[2016-10-30 06:46] LABS: INR 2.3 (0.9-1.1); PROTHROMBIN TIME 24.1 SEC (9.30-11.50)
[2016-10-30 07:07] LABS: TROPONIN I < 0.30 ng/mL (<=0.30)
[2016-10-30 07:09] LABS: ALANINE AMINOTRANSFERASE 8 U/L (3-33); ALBUMIN/GLOBULIN RATIO 1.5 (1.0-2.7); ANION GAP 10 (5-15); ASPARTATE AMINO TRANSFERASE 17 U/L (5-40); CALCIUM 8.7 mg/dL (8.6-10.2); CARBON DIOXIDE 37 mEQ/L (20-30); CHLORIDE 97 mEQ/L (98-107); CREATININE 0.9 mg/dL (0.5-0.9); HEMOLYSIS 3; POTASSIUM 3.9 mEQ/L (3.4-4.9); SODIUM 144 mEQ/L (135-145); TOTAL PROTEIN 6.1 g/dL (6.6-8.7)
[2016-10-30 07:24] LABS: BASOPHILS % (AUTO) 0.9 % (0.0-2.0); LYMPHOCYTES % (AUTO) 13.9 % (20.0-45.0); MEAN CORPUSCULAR HEMOGLOBIN 26.4 PG (27.0-31.0); MEAN CORPUSCULAR HGB CONC 30.5 G/DL (32.0-36.0); MEAN CORPUSCULAR VOLUME 87 FL (80-99); MEAN PLATELET VOLUME 6.5 FL (6.5-10.1); MONOCYTES % (AUTO) 11.4 % (1.0-10.0); NEUTROPHILS % (AUTO) 73.8 % (45.0-75.0); PLATELET COUNT 193 K/UL (150-450); RED BLOOD COUNT 3.81 M/UL (4.20-5.40); RED CELL DISTRIBUTION WIDTH 15.2 % (11.6-14.8); WHITE BLOOD COUNT 8.4 K/UL (4.8-10.8)
[2016-10-30 07:52] VITALS: BP 154/62
[2016-10-30] MEDS: Sucralfate 1gm tab ORAL SCH ×4 (08:35→20:53)
[2016-10-30] MEDS: Docusate 100mg tablet ORAL SCH (08:35)
[2016-10-30 11:36] VITALS: BP 133/53
--- NOTE | 2016-10-30 12:03 | Internal Med Progress Note ---
Subjective Date of Service: Oct 30, 2016 Physician Name Carmine Dunbar Attending Physician Tony Gonzales MD Current Medications Medications (Trade) Dose Ordered Sig/Nataliia Route PRN Reason Start Time Stop Time Status Last Admin Dose Admin Acetaminophen (Tylenol) 650 mg Q6H PRN ORAL Mild Pain/Temp > 100.5 10/28/16 08:00 11/27/16 07:59 Albuterol/ Ipratropium (DuoNeb 0.5-3(2.5)mg/3ml) 3 ml Q4H PRN HHN Shortness of Breath 10/29/16 11:30 11/03/16 11:29 10/29/16 11:30 Alprazolam (Xanax) 0.25 mg DAILY PRN ORAL For Anxiety 10/28/16 08:00 11/04/16 07:59 Azithromycin (Zithromax) 250 mg Q24H ORAL 10/28/16 21:00 10/31/16 21:01 10/29/16 20:46 Ceftriaxone Sodium/Sodium Chloride (Rocephin/Sodium Chloride) 55 ml @ 110 mls/hr Q24H IVPB 10/30/16 20:00 11/04/16 19:59 Clonidine HCl (Catapres) 0.1 mg EVERY 6 HOURS PRN ORAL For High Blood Pressure 10/28/16 08:00 11/27/16 07:59 Dextrose (Dextrose 50%) STAT PRN IV Hypoglycemia 10/28/16 07:45 11/27/16 07:44 Docusate Sodium (Colace) 100 mg DAILY ORAL 10/28/16 09:00 11/27/16 08:59 10/30/16 08:35 Escitalopram Oxalate (Lexapro) 10 mg DAILY ORAL 10/28/16 09:00 11/27/16 08:59 10/30/16 08:35 Furosemide (Lasix) 20 mg BID IV 10/28/16 09:00 11/27/16 08:59 10/30/16 08:35 Metoprolol Succinate (Toprol XL) 50 mg DAILY ORAL 10/28/16 09:00 11/27/16 08:59 10/30/16 08:35 Multivitamins (Multivitamins) 1 tab DAILY ORAL 10/28/16 09:00 11/27/16 08:59 10/30/16 08:35 Nitroglycerin (Ntg) 0.4 mg Q5M PRN SL Prn Chest Pain 10/28/16 07:45 11/27/16 07:44 Pantoprazole (Protonix) 40 mg DAILY ORAL 10/28/16 09:00 11/27/16 08:59 10/30/16 08:35 Polyethylene Glycol (Miralax) 17 gm DAILY PRN ORAL Constipation 10/29/16 06:15 11/28/16 06:14 10/29/16 06:20 Potassium Chloride (K-Dur) 10 meq DAILY ORAL 10/28/16 09:00 11/27/16 08:59 10/30/16 08:35 Pravastatin Sodium (Pravachol) 80 mg BEDTIME ORAL 10/28/16 21:00 11/27/16 20:59 10/29/16 20:45 Sucralfate (Carafate) 1 gm FOUR TIMES A DAY ORAL 10/29/16 18:00 11/28/16 17:59 10/30/16 08:35 Tramadol HCl (Ultram) 100 mg EVERY 8 HOURS PRN ORAL Moderate Pain (Pain Scale 4-6) 10/28/16 08:00 11/04/16 07:59 10/29/16 09:06 Warfarin Sodium (Coumadin per pharmacy) 1 ea DAILY PRN MISC Per rx protocol 10/28/16 08:00 11/27/16 07:59 Warfarin Sodium 3 mg 3 mg COUMADIN ONCE ORAL 10/30/16 17:00 10/30/16 17:01 Allergies: Coded Allergies: No Known Allergies (Unverified , 08/30/14) ROS Limited/Unobtainable: No Constitutional: Reports: no symptoms HEENT: Reports: no symptoms Cardiovascular: Reports: no symptoms Respiratory: Reports: shortness of breath Gastrointestinal/Abdominal: Reports: no symptoms Genitourinary: Reports: no symptoms Neurologic/Psychiatric: Reports: no symptoms Subjective 86 YO F admitted for shortness of Breath, now congestive heart failure. Cover for Int Med-Dr Gonzales. Objective Last Vital Signs Date Time Temp Pulse Resp B/P Pulse Ox O2 Delivery O2 Flow Rate FiO2 10/30/16 11:36 98.1 60 20 133/53 97 Nasal Cannula 2.0 10/30/16 07:46 28 Laboratory Tests Test 3/29/17 05:05 White Blood Count 8.4 K/UL (4.8-10.8) Red Blood Count 3.81 M/UL (4.20-5.40) L Hemoglobin 10.1 G/DL (12.0-16.0) L Hematocrit 33.0 % (37.0-47.0) L Mean Corpuscular Volume 87 FL (80-99) Mean Corpuscular Hemoglobin 26.4 PG (27.0-31.0) L Mean Corpuscular Hemoglobin Concent 30.5 G/DL (32.0-36.0) L Red Cell Distribution Width 15.2 % (11.6-14.8) H Platelet Count 193 K/UL (150-450) Mean Platelet Volume 6.5 FL (6.5-10.1) Neutrophils (%) (Auto) 73.8 % (45.0-75.0) Lymphocytes (%) (Auto) 13.9 % (20.0-45.0) L Monocytes (%) (Auto) 11.4 % (1.0-10.0) H Eosinophils (%) (Auto) 0.0 % (0.0-3.0) Basophils (%) (Auto) 0.9 % (0.0-2.0) Prothrombin Time 24.1 SEC (9.30-11.50) H Prothromb Time International Ratio 2.3 (0.9-1.1) H Sodium Level 144 mEQ/L (135-145) Potassium Level 3.9 mEQ/L (3.4-4.9) Chloride Level 97 mEQ/L (98-107) L Carbon Dioxide Level 37 mEQ/L (20-30) H Anion Gap 10 (5-15) Blood Urea Nitrogen 21 mg/dL (7-23) Creatinine 0.9 mg/dL (0.5-0.9) Estimat Glomerular Filtration Rate mL/min (>60) Glucose Level 96 mg/dL (74-106) Calcium Level 8.7 mg/dL (8.6-10.2) Total Bilirubin 0.2 mg/dL (0.0-1.2) Aspartate Amino Transf (AST/SGOT) 17 U/L (5-40) Alanine Aminotransferase (ALT/SGPT) 8 U/L (3-33) Alkaline Phosphatase 39 U/L (35-104) Troponin I < 0.30 ng/mL (<=0.30) Pro-B-Type Natriuretic Peptide 3071 pg/mL (0-450) H Total Protein 6.1 g/dL (6.6-8.7) L Albumin 3.7 g/dL (3.5-5.2) Globulin 2.4 g/dL Albumin/Globulin Ratio 1.5 (1.0-2.7) Intake and Output 10/29/16 10/30/16 19:00 07:00 Intake Total 240 ml 55 ml Output Total 600 ml Balance -360 ml 55 ml Intake Oral 240 ml IV Total 55 ml Output Urine Total 600 ml # Voids 2 # Bowel Movements 1 Objective General Appearance: no apparent distress, alert, mild distress EENT: PERRL/EOMI, normal ENT inspection, TMs normal Neck: non-tender, normal alignment, supple Cardiovascular: normal peripheral pulses, normal rate, regular rhythm, no gallop/murmur, no JVD Respiratory/Chest: chest wall non-tender, crackles/rales, rhonchi - bilaterally Abdomen: normal bowel sounds, non tender, soft, no organomegaly, no mass Extremities: normal range of motion, non-tender 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 See pulmonary note. (2) HTN (hypertension) Assessment & Plan: Cont toprol XL (3) Pleural effusion Assessment & Plan: See Pulmonary note. (4) Hypercholesteremia (5) Major depression (6) SOB (shortness of breath) (7) CHF (congestive heart failure) Assessment & Plan: LVEF=55%. see cardiology note. Continue lasix. (8) Pneumonia Assessment & Plan: Continue azithromycin and ceftriaxone. (9) Heart valve replaced Status: progressing Assessment/Plan Discharge planning: [facility] CARMINE DUNBAR Oct 30, 2016 12:03
--- NOTE | 2016-10-30 12:05 | Diagnostic Imaging Report ---
Indication: DYSPNEA Technique: One view of the chest Comparison: 10/28/2016 Findings: There is a large right and small left pleural effusion. These appear similar to the previous exam. Interstitial congestion appears slightly improved. Heart is borderline enlarged. Left chest pacemaker is again demonstrated. Median sternotomy sutures are again demonstrated Impression: Decreased but persistent interstitial congestion, over 2 days Persistent bilateral pleural effusions
--- NOTE | 2016-10-30 12:10 | Cardiac Electrophysiology PN ---
Assessment/Plan Assessment/Plan 1. Status post valve replacement. The nature of the valve is not clear at this time, likely not prosthetic valve based on echo. Regardless, the patient is on full anticoagulation with Coumadin and especially that she also has atrial fibrillation. Echo did not mention any prosthetic valve. 2. Congestive heart failure. Could be due to severe MR and TR. EF 55%. On Lasix 20 mg IV b.i.d. 3. Atrial fibrillation. The rate is controlled on Toprol-XL 50 mg daily. Continue Coumadin 4. Hypertension. Continue Toprol and p.r.n. clonidine. 5. S/P Dual chamber pacer. ?Brand 6. Pneumonia, on Zithromax and Rocephin. 7. Hyperlipidemia, on Pravachol. 8. Severe TR and pulmonary HTN. MOURA Subjective Subjective No chest pain.Alert in NAD sitter at bedside.Remained V pacing. Objective Last 24 Hour Vital Signs Date Time Temp Pulse Resp B/P Pulse Ox O2 Delivery O2 Flow Rate FiO2 10/30/16 11:36 98.1 60 20 133/53 97 Nasal Cannula 2.0 10/30/16 08:35 60 154/62 10/30/16 07:52 97.0 60 20 154/62 97 Nasal Cannula 2.0 10/30/16 07:49 60 10/30/16 07:46 Nasal Cannula 2.0 10/30/16 07:45 97 Nasal Cannula 2.0 10/30/16 07:44 59 16 Nasal Cannula 2.0 10/30/16 04:19 97.0 109 20 115/73 93 Room Air 10/30/16 04:00 60 10/30/16 00:20 97.2 61 20 122/75 94 Room Air 10/30/16 00:00 60 10/29/16 20:00 60 10/29/16 20:00 97.5 60 18 142/60 92 Room Air 10/29/16 19:10 Nasal Cannula 2.0 10/29/16 19:10 65 18 Nasal Cannula 2.0 10/29/16 19:10 95 Nasal Cannula 2.0 10/29/16 16:00 62 10/29/16 16:00 98.1 61 20 130/65 85 Room Air Intake and Output 10/29/16 10/30/16 19:00 07:00 Intake Total 240 ml 55 ml Output Total 600 ml Balance -360 ml 55 ml Intake Oral 240 ml IV Total 55 ml Output Urine Total 600 ml # Voids 2 # Bowel Movements 1 Laboratory Tests Test 10/30/16 05:05 White Blood Count 8.4 K/UL (4.8-10.8) Red Blood Count 3.81 M/UL (4.20-5.40) L Hemoglobin 10.1 G/DL (12.0-16.0) L Hematocrit 33.0 % (37.0-47.0) L Mean Corpuscular Volume 87 FL (80-99) Mean Corpuscular Hemoglobin 26.4 PG (27.0-31.0) L Mean Corpuscular Hemoglobin Concent 30.5 G/DL (32.0-36.0) L Red Cell Distribution Width 15.2 % (11.6-14.8) H Platelet Count 193 K/UL (150-450) Mean Platelet Volume 6.5 FL (6.5-10.1) Neutrophils (%) (Auto) 73.8 % (45.0-75.0) Lymphocytes (%) (Auto) 13.9 % (20.0-45.0) L Monocytes (%) (Auto) 11.4 % (1.0-10.0) H Eosinophils (%) (Auto) 0.0 % (0.0-3.0) Basophils (%) (Auto) 0.9 % (0.0-2.0) Prothrombin Time 24.1 SEC (9.30-11.50) H Prothromb Time International Ratio 2.3 (0.9-1.1) H Sodium Level 144 mEQ/L (135-145) Potassium Level 3.9 mEQ/L (3.4-4.9) Chloride Level 97 mEQ/L (98-107) L Carbon Dioxide Level 37 mEQ/L (20-30) H Anion Gap 10 (5-15) Blood Urea Nitrogen 21 mg/dL (7-23) Creatinine 0.9 mg/dL (0.5-0.9) Estimat Glomerular Filtration Rate mL/min (>60) Glucose Level 96 mg/dL (74-106) Calcium Level 8.7 mg/dL (8.6-10.2) Total Bilirubin 0.2 mg/dL (0.0-1.2) Aspartate Amino Transf (AST/SGOT) 17 U/L (5-40) Alanine Aminotransferase (ALT/SGPT) 8 U/L (3-33) Alkaline Phosphatase 39 U/L (35-104) Troponin I < 0.30 ng/mL (<=0.30) Pro-B-Type Natriuretic Peptide 3071 pg/mL (0-450) H Total Protein 6.1 g/dL (6.6-8.7) L Albumin 3.7 g/dL (3.5-5.2) Globulin 2.4 g/dL Albumin/Globulin Ratio 1.5 (1.0-2.7) Objective HEAD AND NECK: Mild JVD. LUNGS: Clear. CARDIOVASCULAR: Shows sternotomy is intact. The left subclavian pacemaker is intact. ABDOMEN: Soft. EXTREMITIES: Have no pitting edema. BILL GILES Oct 30, 2016 12:10
[2016-10-30 16:00] VITALS: BP 124/66
[2016-10-30] MEDS ORDERED: NS 275ml ONE (16:53)
[2016-10-30] MEDS ORDERED: Tubing IV Secondary IV ONE (16:53)
[2016-10-30] MEDS ORDERED: Warfarin Sodium 3mg ORAL ONE (17:00)
[2016-10-30 20:00] VITALS: BP 127/51
[2016-10-30] MEDS: Azithromycin 250mg tab ORAL SCH (20:53)
[2016-10-30] MEDS: cefTRIAXone 1 GM in NS 55 ML IVPB SCH (20:53)
--- NOTE | 2016-10-30 22:25 | Pulmonology Progress Note ---
Assessment/Plan Problems: (1) SOB (shortness of breath) (2) Pleural effusion (3) Pacemaker (4) CHF (congestive heart failure) Assessment/Plan continue diuresis watch intake and output check electrolytes f/u cxr and bnp in am Subjective ROS Limited/Unobtainable: No Interval Events: less short of breath, still complaining of Left lower chest pain Allergies: Coded Allergies: No Known Allergies (Unverified , 08/30/14) Objective Last 24 Hour Vital Signs Date Time Temp Pulse Resp B/P Pulse Ox O2 Delivery O2 Flow Rate FiO2 10/30/16 20:19 62 18 Nasal Cannula 2.0 10/30/16 20:19 Nasal Cannula 2.0 28 10/30/16 20:19 98 Nasal Cannula 2.0 10/30/16 20:00 97.0 60 18 127/51 Nasal Cannula 2.0 98 10/30/16 16:00 98.1 60 18 124/66 Nasal Cannula 2.0 99 10/30/16 16:00 60 10/30/16 11:47 60 10/30/16 11:36 98.1 60 20 133/53 97 Nasal Cannula 2.0 10/30/16 08:35 60 154/62 10/30/16 07:52 97.0 60 20 154/62 97 Nasal Cannula 2.0 10/30/16 07:49 60 10/30/16 07:46 Nasal Cannula 2.0 10/30/16 07:45 97 Nasal Cannula 2.0 10/30/16 07:44 59 16 Nasal Cannula 2.0 10/30/16 04:19 97.0 109 20 115/73 93 Room Air 10/30/16 04:00 60 10/30/16 00:20 97.2 61 20 122/75 94 Room Air 10/30/16 00:00 60 Intake and Output 10/29/16 10/30/16 19:00 07:00 Intake Total 240 ml 55 ml Output Total 600 ml Balance -360 ml 55 ml Intake Oral 240 ml IV Total 55 ml Output Urine Total 600 ml # Voids 2 # Bowel Movements 1 General Appearance: WD/WN HEENT: normocephalic Respiratory/Chest: chest wall non-tender Cardiovascular: normal peripheral pulses, normal rate Abdomen: normal bowel sounds, no organomegaly Genitourinary: normal external genitalia Extremities: no cyanosis Skin: no rash Neurologic/Psychiatric: donor recruiter II-XII grossly normal, no motor/sensory deficits Lymphatic: no neck adenopathy, no groin adenopathy Laboratory Tests 10/30/16 05:05: White Blood Count 8.4, Red Blood Count 3.81L, Hemoglobin 10.1L, Hematocrit 33.0L , Mean Corpuscular Volume 87, Mean Corpuscular Hemoglobin 26.4L, Mean Corpuscular Hemoglobin Concent 30.5L, Red Cell Distribution Width 15.2H, Platelet Count 193, Mean Platelet Volume 6.5, Neutrophils (%) (Auto) 73.8, Lymphocytes (%) (Auto) 13.9L, Monocytes (%) (Auto) 11.4H, Eosinophils (%) (Auto ) 0.0, Basophils (%) (Auto) 0.9, Prothrombin Time 24.1H, Prothromb Time International Ratio 2.3H, Sodium Level 144, Potassium Level 3.9, Chloride Level 97L, Carbon Dioxide Level 37H, Anion Gap 10, Blood Urea Nitrogen 21, Creatinine 0.9, Estimat Glomerular Filtration Rate , Glucose Level 96, Calcium Level 8.7, Total Bilirubin 0.2, Aspartate Amino Transf (AST/SGOT) 17, Alanine Aminotransferase (ALT/SGPT) 8, Alkaline Phosphatase 39, Troponin I < 0.30, Pro-B -Type Natriuretic Peptide 3071H, Total Protein 6.1L, Albumin 3.7, Globulin 2.4, Albumin/Globulin Ratio 1.5 Current Medications Medications (Trade) Dose Ordered Sig/Nataliia Route PRN Reason Start Time Stop Time Status Last Admin Dose Admin Acetaminophen (Tylenol) 650 mg Q6H PRN ORAL Mild Pain/Temp > 100.5 10/28/16 08:00 11/27/16 07:59 Albuterol/ Ipratropium (DuoNeb 0.5-3(2.5)mg/3ml) 3 ml Q4H PRN HHN Shortness of Breath 10/29/16 11:30 11/03/16 11:29 10/29/16 11:30 Alprazolam (Xanax) 0.25 mg DAILY PRN ORAL For Anxiety 10/28/16 08:00 11/04/16 07:59 Azithromycin (Zithromax) 250 mg Q24H ORAL 10/28/16 21:00 10/31/16 21:01 10/30/16 20:53 Ceftriaxone Sodium/Sodium Chloride (Rocephin/Sodium Chloride) 55 ml @ 110 mls/hr Q24H IVPB 10/30/16 20:00 11/04/16 19:59 10/30/16 20:53 Clonidine HCl (Catapres) 0.1 mg EVERY 6 HOURS PRN ORAL For High Blood Pressure 10/28/16 08:00 11/27/16 07:59 Dextrose (Dextrose 50%) STAT PRN IV Hypoglycemia 10/28/16 07:45 11/27/16 07:44 Docusate Sodium (Colace) 100 mg DAILY ORAL 10/28/16 09:00 11/27/16 08:59 10/30/16 08:35 Escitalopram Oxalate (Lexapro) 10 mg DAILY ORAL 10/28/16 09:00 11/27/16 08:59 10/30/16 08:35 Furosemide (Lasix) 20 mg BID IV 10/28/16 09:00 11/27/16 08:59 10/30/16 17:17 Metoprolol Succinate (Toprol XL) 50 mg DAILY ORAL 10/28/16 09:00 11/27/16 08:59 10/30/16 08:35 Multivitamins (Multivitamins) 1 tab DAILY ORAL 10/28/16 09:00 11/27/16 08:59 10/30/16 08:35 Nitroglycerin (Ntg) 0.4 mg Q5M PRN SL Prn Chest Pain 10/28/16 07:45 11/27/16 07:44 Pantoprazole (Protonix) 40 mg DAILY ORAL 10/28/16 09:00 11/27/16 08:59 10/30/16 08:35 Polyethylene Glycol (Miralax) 17 gm DAILY PRN ORAL Constipation 10/29/16 06:15 11/28/16 06:14 10/29/16 06:20 Potassium Chloride (K-Dur) 10 meq DAILY ORAL 10/28/16 09:00 11/27/16 08:59 10/30/16 08:35 Pravastatin Sodium (Pravachol) 80 mg BEDTIME ORAL 10/28/16 21:00 11/27/16 20:59 10/30/16 20:54 Sucralfate 1 gm 1 gm FOUR TIMES A DAY ORAL 10/29/16 18:00 11/28/16 17:59 10/30/16 20:53 Tramadol HCl (Ultram) 100 mg EVERY 8 HOURS PRN ORAL Moderate Pain (Pain Scale 4-6) 10/28/16 08:00 11/04/16 07:59 10/29/16 09:06 Warfarin Sodium (Coumadin per pharmacy) 1 ea DAILY PRN MISC Per rx protocol 10/28/16 08:00 11/27/16 07:59 RUSS ANDRADE Oct 30, 2016 22:25
[2016-10-31 00:06] VITALS: BP 143/66
[2016-10-31 04:10] VITALS: BP 126/61
[2016-10-31 07:36] LABS: BASOPHILS % (AUTO) 1.5 % (0.0-2.0); LYMPHOCYTES % (AUTO) 15.9 % (20.0-45.0); MEAN CORPUSCULAR HEMOGLOBIN 26.8 PG (27.0-31.0); MEAN CORPUSCULAR HGB CONC 31.1 G/DL (32.0-36.0); MEAN CORPUSCULAR VOLUME 86 FL (80-99); MEAN PLATELET VOLUME 6.4 FL (6.5-10.1); MONOCYTES % (AUTO) 10.4 % (1.0-10.0); NEUTROPHILS % (AUTO) 72.2 % (45.0-75.0); PLATELET COUNT 193 K/UL (150-450); RED BLOOD COUNT 3.96 M/UL (4.20-5.40); RED CELL DISTRIBUTION WIDTH 15.4 % (11.6-14.8); WHITE BLOOD COUNT 7.3 K/UL (4.8-10.8)
[2016-10-31 07:44] LABS: INR 2.5 (0.9-1.1); PROTHROMBIN TIME 26.2 SEC (9.30-11.50)
[2016-10-31 07:57] LABS: ANION GAP 12 (5-15); CALCIUM 8.9 mg/dL (8.6-10.2); CARBON DIOXIDE 35 mEQ/L (20-30); CHLORIDE 99 mEQ/L (98-107); CREATININE 0.8 mg/dL (0.5-0.9); HEMOLYSIS 30; POTASSIUM 4.1 mEQ/L (3.4-4.9); SODIUM 146 mEQ/L (135-145)
[2016-10-31 08:36] VITALS: BP 143/59
[2016-10-31] MEDS: Sucralfate 1gm tab ORAL SCH ×4 (08:44→20:41)
[2016-10-31] MEDS: Docusate 100mg tablet ORAL SCH (08:44)
[2016-10-31 11:46] VITALS: BP 127/46
[2016-10-31 13:01] LABS: INR 2.6 (0.9-1.1); PROTHROMBIN TIME 26.8 SEC (9.30-11.50)
--- NOTE | 2016-10-31 15:37 | Cardiac Electrophysiology PN ---
Assessment/Plan Assessment/Plan 1. Status post SJ prosthetic valve replacement. The nature of the valve is not clear at this time, on full anticoagulation with Coumadin. Echo did not mention any prosthetic valve. 2. Congestive heart failure. Could be due to severe MR and TR. EF 55%. On Lasix 20 mg IV b.i.d. Right thoracentesis tomorrow. 3. Atrial fibrillation. The rate is controlled on Toprol-XL 50 mg daily. Coumadin held for thoracentesis. 4. Hypertension. Continue Toprol and p.r.n. clonidine. 5. S/P Dual chamber Medtronic pacer. 6. Pneumonia, on Zithromax and Rocephin. 7. Hyperlipidemia, on Pravachol. 8. Severe TR and pulmonary HTN. MOURA Subjective Subjective No chest pain.Alert in NAD sitter at bedside V pacing at 60. Objective Last 24 Hour Vital Signs Date Time Temp Pulse Resp B/P Pulse Ox O2 Delivery O2 Flow Rate FiO2 10/31/16 11:47 60 10/31/16 11:46 98.1 60 20 127/46 97 Nasal Cannula 2.0 10/31/16 08:45 60 143/59 10/31/16 08:36 98.2 60 20 143/59 97 Nasal Cannula 2.0 10/31/16 07:41 60 10/31/16 07:10 61 16 Nasal Cannula 2.0 28 10/31/16 07:10 98 Nasal Cannula 2.0 28 10/31/16 07:10 Nasal Cannula 2.0 28 10/31/16 04:10 97.9 60 20 126/61 97 Room Air 10/31/16 04:00 60 10/31/16 00:06 98.2 60 20 143/66 97 Nasal Cannula 2.0 10/31/16 00:00 60 10/30/16 20:19 62 18 Nasal Cannula 2.0 28 10/30/16 20:19 Nasal Cannula 2.0 28 10/30/16 20:19 98 Nasal Cannula 2.0 28 10/30/16 20:00 60 10/30/16 20:00 97.0 60 18 127/51 Nasal Cannula 2.0 98 10/30/16 16:00 98.1 60 18 124/66 Nasal Cannula 2.0 99 10/30/16 16:00 60 Intake and Output 10/30/16 10/31/16 19:00 07:00 Intake Total 240 ml 55 ml Balance 240 ml 55 ml Intake Oral 240 ml IV Total 55 ml # Voids 2 1 # Bowel Movements 1 Laboratory Tests Test 10/31/16 07:11 10/31/16 12:30 White Blood Count 7.3 K/UL (4.8-10.8) Red Blood Count 3.96 M/UL (4.20-5.40) L Hemoglobin 10.6 G/DL (12.0-16.0) L Hematocrit 34.2 % (37.0-47.0) L Mean Corpuscular Volume 86 FL (80-99) Mean Corpuscular Hemoglobin 26.8 PG (27.0-31.0) L Mean Corpuscular Hemoglobin Concent 31.1 G/DL (32.0-36.0) L Red Cell Distribution Width 15.4 % (11.6-14.8) H Platelet Count 193 K/UL (150-450) Mean Platelet Volume 6.4 FL (6.5-10.1) L Neutrophils (%) (Auto) 72.2 % (45.0-75.0) Lymphocytes (%) (Auto) 15.9 % (20.0-45.0) L Monocytes (%) (Auto) 10.4 % (1.0-10.0) H Eosinophils (%) (Auto) 0.0 % (0.0-3.0) Basophils (%) (Auto) 1.5 % (0.0-2.0) Prothrombin Time 26.2 SEC (9.30-11.50) H 26.8 SEC (9.30-11.50) H Prothromb Time International Ratio 2.5 (0.9-1.1) H 2.6 (0.9-1.1) H Sodium Level 146 mEQ/L (135-145) H Potassium Level 4.1 mEQ/L (3.4-4.9) Chloride Level 99 mEQ/L (98-107) Carbon Dioxide Level 35 mEQ/L (20-30) H Anion Gap 12 (5-15) Blood Urea Nitrogen 18 mg/dL (7-23) Creatinine 0.8 mg/dL (0.5-0.9) Estimat Glomerular Filtration Rate mL/min (>60) Glucose Level 97 mg/dL (74-106) Calcium Level 8.9 mg/dL (8.6-10.2) Activated Partial Thromboplast Time 36 SEC (23-33) H Objective HEAD AND NECK: Mild JVD. LUNGS: Clear. CARDIOVASCULAR: Shows sternotomy is intact. The left subclavian pacemaker is intact. ABDOMEN: Soft. EXTREMITIES: Have no pitting edema. BILL GILES Oct 31, 2016 15:36
[2016-10-31 16:00] VITALS: BP 132/61
--- NOTE | 2016-10-31 16:47 | Internal Med Progress Note ---
Subjective Date of Service: Oct 31, 2016 Physician Name Carmine Dunbar Attending Physician Tony Gonzales MD Current Medications Medications (Trade) Dose Ordered Sig/Nataliia Route PRN Reason Start Time Stop Time Status Last Admin Dose Admin Acetaminophen (Tylenol) 650 mg Q6H PRN ORAL Mild Pain/Temp > 100.5 10/28/16 08:00 11/27/16 07:59 Albuterol/ Ipratropium (DuoNeb 0.5-3(2.5)mg/3ml) 3 ml Q4H PRN HHN Shortness of Breath 10/29/16 11:30 11/03/16 11:29 10/29/16 11:30 Alprazolam (Xanax) 0.25 mg DAILY PRN ORAL For Anxiety 10/28/16 08:00 11/04/16 07:59 Azithromycin (Zithromax) 250 mg Q24H ORAL 10/28/16 21:00 10/31/16 21:01 10/30/16 20:53 Ceftriaxone Sodium/Sodium Chloride (Rocephin/Sodium Chloride) 55 ml @ 110 mls/hr Q24H IVPB 10/30/16 20:00 11/04/16 19:59 10/30/16 20:53 Clonidine HCl (Catapres) 0.1 mg EVERY 6 HOURS PRN ORAL For High Blood Pressure 10/28/16 08:00 11/27/16 07:59 Dextrose (Dextrose 50%) STAT PRN IV Hypoglycemia 10/28/16 07:45 11/27/16 07:44 Docusate Sodium (Colace) 100 mg DAILY ORAL 10/28/16 09:00 11/27/16 08:59 10/31/16 08:44 Escitalopram Oxalate (Lexapro) 10 mg DAILY ORAL 10/28/16 09:00 11/27/16 08:59 10/31/16 08:44 Furosemide (Lasix) 20 mg BID IV 10/28/16 09:00 11/27/16 08:59 10/31/16 08:43 Metoprolol Succinate (Toprol XL) 50 mg DAILY ORAL 10/28/16 09:00 11/27/16 08:59 10/31/16 08:45 Multivitamins (Multivitamins) 1 tab DAILY ORAL 10/28/16 09:00 11/27/16 08:59 10/31/16 08:44 Nitroglycerin (Ntg) 0.4 mg Q5M PRN SL Prn Chest Pain 10/28/16 07:45 11/27/16 07:44 Pantoprazole (Protonix) 40 mg DAILY ORAL 10/28/16 09:00 11/27/16 08:59 10/31/16 08:44 Polyethylene Glycol (Miralax) 17 gm DAILY PRN ORAL Constipation 10/29/16 06:15 11/28/16 06:14 10/29/16 06:20 Potassium Chloride (K-Dur) 10 meq DAILY ORAL 10/28/16 09:00 11/27/16 08:59 10/31/16 08:44 Pravastatin Sodium (Pravachol) 80 mg BEDTIME ORAL 10/28/16 21:00 11/27/16 20:59 10/30/16 20:54 Sucralfate 1 gm 1 gm FOUR TIMES A DAY ORAL 10/29/16 18:00 11/28/16 17:59 10/31/16 13:11 Tramadol HCl (Ultram) 100 mg EVERY 8 HOURS PRN ORAL Moderate Pain (Pain Scale 4-6) 10/28/16 08:00 11/04/16 07:59 10/29/16 09:06 Warfarin Sodium (Coumadin per pharmacy) 1 ea DAILY PRN MISC Per rx protocol 10/28/16 08:00 11/27/16 07:59 Allergies: Coded Allergies: No Known Allergies (Unverified , 08/30/14) ROS Limited/Unobtainable: No Constitutional: Reports: no symptoms HEENT: Reports: no symptoms Cardiovascular: Reports: no symptoms Respiratory: Reports: shortness of breath Gastrointestinal/Abdominal: Reports: no symptoms Genitourinary: Reports: no symptoms Neurologic/Psychiatric: Reports: no symptoms Subjective 86 YO F admitted for shortness of Breath, now congestive heart failure. Await discharge to [facility] with [facility] on . Cover for Int Med-Dr Gonzales. Objective Last Vital Signs Date Time Temp Pulse Resp B/P Pulse Ox O2 Delivery O2 Flow Rate FiO2 10/31/16 16:00 97.2 64 21 132/61 98 Nasal Cannula 2.0 10/31/16 07:10 28 Laboratory Tests Test 10/31/16 07:11 10/31/16 12:30 White Blood Count 7.3 K/UL (4.8-10.8) Red Blood Count 3.96 M/UL (4.20-5.40) L Hemoglobin 10.6 G/DL (12.0-16.0) L Hematocrit 34.2 % (37.0-47.0) L Mean Corpuscular Volume 86 FL (80-99) Mean Corpuscular Hemoglobin 26.8 PG (27.0-31.0) L Mean Corpuscular Hemoglobin Concent 31.1 G/DL (32.0-36.0) L Red Cell Distribution Width 15.4 % (11.6-14.8) H Platelet Count 193 K/UL (150-450) Mean Platelet Volume 6.4 FL (6.5-10.1) L Neutrophils (%) (Auto) 72.2 % (45.0-75.0) Lymphocytes (%) (Auto) 15.9 % (20.0-45.0) L Monocytes (%) (Auto) 10.4 % (1.0-10.0) H Eosinophils (%) (Auto) 0.0 % (0.0-3.0) Basophils (%) (Auto) 1.5 % (0.0-2.0) Prothrombin Time 26.2 SEC (9.30-11.50) H 26.8 SEC (9.30-11.50) H Prothromb Time International Ratio 2.5 (0.9-1.1) H 2.6 (0.9-1.1) H Sodium Level 146 mEQ/L (135-145) H Potassium Level 4.1 mEQ/L (3.4-4.9) Chloride Level 99 mEQ/L (98-107) Carbon Dioxide Level 35 mEQ/L (20-30) H Anion Gap 12 (5-15) Blood Urea Nitrogen 18 mg/dL (7-23) Creatinine 0.8 mg/dL (0.5-0.9) Estimat Glomerular Filtration Rate mL/min (>60) Glucose Level 97 mg/dL (74-106) Calcium Level 8.9 mg/dL (8.6-10.2) Activated Partial Thromboplast Time 36 SEC (23-33) H Intake and Output 10/30/16 10/31/16 19:00 07:00 Intake Total 240 ml 55 ml Balance 240 ml 55 ml Intake Oral 240 ml IV Total 55 ml # Voids 2 1 # Bowel Movements 1 Objective General Appearance: no apparent distress, alert, mild distress EENT: PERRL/EOMI, normal ENT inspection, TMs normal Neck: non-tender, normal alignment, supple Cardiovascular: normal peripheral pulses, normal rate, regular rhythm, no gallop/murmur, no JVD Respiratory/Chest: chest wall non-tender, crackles/rales, rhonchi - bilaterally Abdomen: normal bowel sounds, non tender, soft, no organomegaly, no mass Extremities: normal range of motion, non-tender Neurologic: tip printer II-XII grossly normal, no motor/sensory deficits Skin: normal pigmentation, warm/dry Assessment/Plan Problem List: (1) Pleural effusion Assessment & Plan: Bilateral R>L. See pulmonary note. (2) HTN (hypertension) Assessment & Plan: Cont toprol XL (3) Pleural effusion Assessment & Plan: See Pulmonary note. (4) Hypercholesteremia (5) Major depression (6) SOB (shortness of breath) (7) CHF (congestive heart failure) Assessment & Plan: LVEF=55%. see cardiology note. Continue lasix. (8) Pneumonia Assessment & Plan: Continue azithromycin and ceftriaxone. (9) Heart valve replaced Status: progressing Assessment/Plan Discharge planning: [facility] with [facility] on 11/01. CARMINE DUNBAR Oct 31, 2016 16:47
[2016-10-31] MEDS ORDERED: Warfarin Sodium 3mg ORAL ONE (17:00)
[2016-10-31] MEDS ORDERED: Tubing IV Secondary IV ONE (17:08)
[2016-10-31] MEDS ORDERED: Tubing Blood Filter IV ONE (17:08)
[2016-10-31] MEDS ORDERED: NS 275ml ONE (17:08)
[2016-10-31 20:00] VITALS: BP 141/58
[2016-10-31] MEDS ORDERED: DiphenhydrAMINE 50mg/ml Inj IVP PRN (20:30)
[2016-10-31] MEDS: cefTRIAXone 1 GM in NS 55 ML IVPB SCH (20:40)
[2016-10-31] MEDS: Azithromycin 250mg tab ORAL SCH (20:40)
[2016-10-31] MEDS ORDERED: ACETAMINOPHEN325 M1 ORAL (20:50)
--- NOTE | 2016-10-31 22:08 | Pulmonology Progress Note ---
Assessment/Plan Problems: (1) SOB (shortness of breath) (2) Pleural effusion (3) Pacemaker (4) CHF (congestive heart failure) Assessment/Plan ffp and vitamin K to correct the coagulopathy thoracentesis in am continue diuresis watch intake and output check electrolytes f/u cxr and bnp in am Subjective Constitutional: Reports: no symptoms Allergies: Coded Allergies: No Known Allergies (Unverified , 08/30/14) Objective Last 24 Hour Vital Signs Date Time Temp Pulse Resp B/P Pulse Ox O2 Delivery O2 Flow Rate FiO2 10/31/16 20:11 Nasal Cannula 2.0 28 10/31/16 20:11 96 Nasal Cannula 2.0 28 10/31/16 20:10 66 16 Nasal Cannula 2.0 28 10/31/16 20:00 63 10/31/16 20:00 98.1 60 20 141/58 98 Nasal Cannula 2.0 10/31/16 16:00 60 10/31/16 16:00 97.2 64 21 132/61 98 Nasal Cannula 2.0 10/31/16 11:47 60 10/31/16 11:46 98.1 60 20 127/46 97 Nasal Cannula 2.0 10/31/16 08:45 60 143/59 10/31/16 08:36 98.2 60 20 143/59 97 Nasal Cannula 2.0 10/31/16 07:41 60 10/31/16 07:10 61 16 Nasal Cannula 2.0 28 10/31/16 07:10 98 Nasal Cannula 2.0 28 10/31/16 07:10 Nasal Cannula 2.0 28 10/31/16 04:10 97.9 60 20 126/61 97 Room Air 10/31/16 04:00 60 10/31/16 00:06 98.2 60 20 143/66 97 Nasal Cannula 2.0 10/31/16 00:00 60 Intake and Output 10/30/16 10/31/16 19:00 07:00 Intake Total 240 ml 55 ml Balance 240 ml 55 ml Intake Oral 240 ml IV Total 55 ml # Voids 2 1 # Bowel Movements 1 General Appearance: WD/WN HEENT: normocephalic, atraumatic Respiratory/Chest: chest wall non-tender, lungs clear Cardiovascular: normal peripheral pulses, normal rate Abdomen: normal bowel sounds, soft, non tender Genitourinary: normal external genitalia Skin: no rash, no lesions Laboratory Tests 10/31/16 07:11: White Blood Count 7.3, Red Blood Count 3.96L, Hemoglobin 10.6L, Hematocrit 34.2L , Mean Corpuscular Volume 86, Mean Corpuscular Hemoglobin 26.8L, Mean Corpuscular Hemoglobin Concent 31.1L, Red Cell Distribution Width 15.4H, Platelet Count 193, Mean Platelet Volume 6.4L, Neutrophils (%) (Auto) 72.2, Lymphocytes (%) (Auto) 15.9L, Monocytes (%) (Auto) 10.4H, Eosinophils (%) (Auto ) 0.0, Basophils (%) (Auto) 1.5, Prothrombin Time 26.2H, Prothromb Time International Ratio 2.5H, Sodium Level 146H, Potassium Level 4.1, Chloride Level 99, Carbon Dioxide Level 35H, Anion Gap 12, Blood Urea Nitrogen 18, Creatinine 0.8, Estimat Glomerular Filtration Rate , Glucose Level 97, Calcium Level 8.9 10/31/16 12:30: Prothrombin Time 26.8H, Prothromb Time International Ratio 2.6H, Activated Partial Thromboplast Time 36H Current Medications Medications (Trade) Dose Ordered Sig/Nataliia Route PRN Reason Start Time Stop Time Status Last Admin Dose Admin Acetaminophen (Tylenol) 650 mg Q6H PRN ORAL Mild Pain/Temp > 100.5 10/28/16 08:00 11/27/16 07:59 Albuterol/ Ipratropium (DuoNeb 0.5-3(2.5)mg/3ml) 3 ml Q4H PRN HHN Shortness of Breath 10/29/16 11:30 11/03/16 11:29 10/29/16 11:30 Alprazolam (Xanax) 0.25 mg DAILY PRN ORAL For Anxiety 10/28/16 08:00 11/04/16 07:59 Ceftriaxone Sodium/Sodium Chloride (Rocephin/Sodium Chloride) 55 ml @ 110 mls/hr Q24H IVPB 10/30/16 20:00 11/04/16 19:59 10/31/16 20:40 Clonidine HCl (Catapres) 0.1 mg EVERY 6 HOURS PRN ORAL For High Blood Pressure 10/28/16 08:00 11/27/16 07:59 Dextrose (Dextrose 50%) STAT PRN IV Hypoglycemia 10/28/16 07:45 11/27/16 07:44 Diphenhydramine HCl (Benadryl) 25 mg Q4H PRN IVP Itching 10/31/16 20:30 11/30/16 20:29 10/31/16 20:40 Docusate Sodium (Colace) 100 mg DAILY ORAL 10/28/16 09:00 11/27/16 08:59 10/31/16 08:44 Escitalopram Oxalate (Lexapro) 10 mg DAILY ORAL 10/28/16 09:00 11/27/16 08:59 10/31/16 08:44 Furosemide (Lasix) 20 mg BID IV 10/28/16 09:00 11/27/16 08:59 10/31/16 18:45 Metoprolol Succinate (Toprol XL) 50 mg DAILY ORAL 10/28/16 09:00 11/27/16 08:59 10/31/16 08:45 Multivitamins (Multivitamins) 1 tab DAILY ORAL 10/28/16 09:00 11/27/16 08:59 10/31/16 08:44 Nitroglycerin (Ntg) 0.4 mg Q5M PRN SL Prn Chest Pain 10/28/16 07:45 11/27/16 07:44 Pantoprazole (Protonix) 40 mg DAILY ORAL 10/28/16 09:00 11/27/16 08:59 10/31/16 08:44 Polyethylene Glycol (Miralax) 17 gm DAILY PRN ORAL Constipation 10/29/16 06:15 11/28/16 06:14 10/29/16 06:20 Potassium Chloride (K-Dur) 10 meq DAILY ORAL 10/28/16 09:00 11/27/16 08:59 10/31/16 08:44 Pravastatin Sodium (Pravachol) 80 mg BEDTIME ORAL 10/28/16 21:00 11/27/16 20:59 10/31/16 20:40 Sucralfate 1 gm 1 gm FOUR TIMES A DAY ORAL 10/29/16 18:00 11/28/16 17:59 10/31/16 20:41 Tramadol HCl (Ultram) 100 mg EVERY 8 HOURS PRN ORAL Moderate Pain (Pain Scale 4-6) 10/28/16 08:00 11/04/16 07:59 10/29/16 09:06 Warfarin Sodium (Coumadin per pharmacy) 1 ea DAILY PRN MISC Per rx protocol 10/28/16 08:00 11/27/16 07:59 RUSS ANDRADE Oct 31, 2016 22:08
--- NOTE | 2016-11-01 00:08 | Consultation ---
DATE OF CONSULTATION: HISTORY OF PRESENT ILLNESS: The patient is an 86-year-old [place]ian lady with a history of multiple medical problems including congestive heart failure, anxiety disorder, and depression, who has been admitted to the hospital due to shortness of breath. Psychiatry was consulted as the patient presented with anxiety and anhedonia. During the evaluation, the patient spoke to me in regards to multiple things including her current medical condition. She has some difficulty with sleep. She is currently being treated with Lexapro as well as Xanax. PAST PSYCHIATRIC HISTORY: She has no history of psychiatric hospitalization. She has been diagnosed with depression and anxiety. No suicide attempt in the past. No history of violent behaviors. PAST MEDICAL HISTORY: Hypertension and congestive heart failure. PAST SURGICAL HISTORY: Pacemaker implantation and heart valve replacement. MEDICATIONS: Medications at home, nitroglycerin, clonidine, tramadol, Xanax, metoprolol, Pravachol, Coumadin, Lexapro, potassium chloride, Lasix, Protinex, Colace, and Norvasc. ALLERGIES: No known drug allergies. SUBSTANCE ABUSE HISTORY: There is no history of illicit drug use or alcohol. SOCIAL HISTORY: The patient is a and lives alone. MENTAL STATUS EXAMINATION: The patient is alert and oriented x3. Mood is anxious. Affect is constricted. Congruent mood. Thought process is circumstantial. Thought content, there is no suicidal or homicidal ideations. ASSESSMENT: 1. Major depressive disorder. 2. Anxiety disorder. PLAN: 1. The patient will be continued on Lexapro 10 mg in the morning. 2. Xanax 0.5 mg. 3. Continue to follow and readjust the medication. Azael Vines M.D. DR: MERCY JOB#: [id number] CC:
[2016-11-01 05:08] LABS: EOSINOPHILS % (AUTO) 0.7 % (0.0-3.0); LYMPHOCYTES % (AUTO) 15.8 % (20.0-45.0); MEAN CORPUSCULAR HEMOGLOBIN 26.5 PG (27.0-31.0); MEAN CORPUSCULAR HGB CONC 29.8 G/DL (32.0-36.0); MEAN CORPUSCULAR VOLUME 89 FL (80-99); MEAN PLATELET VOLUME 6.3 FL (6.5-10.1); MONOCYTES % (AUTO) 10.1 % (1.0-10.0); NEUTROPHILS % (AUTO) 72.4 % (45.0-75.0); PLATELET COUNT 177 K/UL (150-450); RED BLOOD COUNT 3.61 M/UL (4.20-5.40); RED CELL DISTRIBUTION WIDTH 15.8 % (11.6-14.8); WHITE BLOOD COUNT 7.2 K/UL (4.8-10.8)
[2016-11-01 05:43] LABS: ANION GAP 8 (5-15); CALCIUM 9.1 mg/dL (8.6-10.2); CARBON DIOXIDE 39 mEQ/L (20-30); CHLORIDE 99 mEQ/L (98-107); CREATININE 0.9 mg/dL (0.5-0.9); HEMOLYSIS 2; POTASSIUM 3.1 mEQ/L (3.4-4.9); SODIUM 146 mEQ/L (135-145)
[2016-11-01 05:54] LABS: INR 1.6 (0.9-1.1); PROTHROMBIN TIME 16.4 SEC (9.30-11.50)
[2016-11-01 07:43] VITALS: BP 142/54
[2016-11-01] MEDS: Sucralfate 1gm tab ORAL SCH ×4 (08:28→21:25)
[2016-11-01] MEDS: Docusate 100mg tablet ORAL SCH (08:28)
[2016-11-01 11:16] VITALS: BP 139/53
--- NOTE | 2016-11-01 13:51 | Pulmonology Progress Note ---
Assessment/Plan Problems: (1) SOB (shortness of breath) (2) Pleural effusion (3) Pacemaker (4) CHF (congestive heart failure) Assessment/Plan ffp and vitamin K to correct the coagulopathy given INR is 1.6 thoracentesis for today continue diuresis watch intake and output check electrolytes f/u cxr and bnp in am Subjective ROS Limited/Unobtainable: No Interval Events: no new complains Allergies: Coded Allergies: No Known Allergies (Unverified , 08/30/14) Objective Last 24 Hour Vital Signs Date Time Temp Pulse Resp B/P Pulse Ox O2 Delivery O2 Flow Rate FiO2 11/01/16 12:00 60 11/01/16 11:16 97.0 60 20 139/53 95 Nasal Cannula 2.0 11/01/16 08:29 60 11/01/16 08:00 60 11/01/16 07:43 97.2 61 20 142/54 97 Nasal Cannula 2.0 11/01/16 06:42 Nasal Cannula 2.0 11/01/16 06:42 60 16 Nasal Cannula 2.0 11/01/16 06:42 99 Nasal Cannula 2.0 11/01/16 04:00 60 11/01/16 00:00 65 10/31/16 20:11 Nasal Cannula 2.0 28 10/31/16 20:11 96 Nasal Cannula 2.0 28 10/31/16 20:10 66 16 Nasal Cannula 2.0 28 10/31/16 20:00 63 10/31/16 20:00 98.1 60 20 141/58 98 Nasal Cannula 2.0 10/31/16 16:00 60 10/31/16 16:00 97.2 64 21 132/61 98 Nasal Cannula 2.0 Intake and Output 10/31/16 11/01/16 19:00 07:00 Intake Total 240 ml 355 ml Balance 240 ml 355 ml Intake Oral 240 ml 300 ml IV Total 55 ml # Voids 2 5 # Bowel Movements 1 General Appearance: WD/WN HEENT: normocephalic, atraumatic Respiratory/Chest: chest wall non-tender, decreased breath sounds Cardiovascular: normal peripheral pulses, normal rate Abdomen: normal bowel sounds, soft, non tender Extremities: no cyanosis Skin: no rash, no lesions Laboratory Tests 11/01/16 03:40: White Blood Count 7.2, Red Blood Count 3.61L, Hemoglobin 9.5L, Hematocrit 32.0L , Mean Corpuscular Volume 89, Mean Corpuscular Hemoglobin 26.5L, Mean Corpuscular Hemoglobin Concent 29.8L, Red Cell Distribution Width 15.8H, Platelet Count 177, Mean Platelet Volume 6.3L, Neutrophils (%) (Auto) 72.4, Lymphocytes (%) (Auto) 15.8L, Monocytes (%) (Auto) 10.1H, Eosinophils (%) (Auto ) 0.7, Basophils (%) (Auto) 1.0, Prothrombin Time 16.4H, Prothromb Time International Ratio 1.6H, Activated Partial Thromboplast Time 31, Sodium Level 146H, Potassium Level 3.1L, Chloride Level 99, Carbon Dioxide Level 39H, Anion Gap 8, Blood Urea Nitrogen 21, Creatinine 0.9, Estimat Glomerular Filtration Rate , Glucose Level 98, Calcium Level 9.1, Pro-B-Type Natriuretic Peptide 3219H Current Medications Medications (Trade) Dose Ordered Sig/Nataliia Route PRN Reason Start Time Stop Time Status Last Admin Dose Admin Acetaminophen (Tylenol) 650 mg Q6H PRN ORAL Mild Pain/Temp > 100.5 10/28/16 08:00 11/27/16 07:59 Albuterol/ Ipratropium (DuoNeb 0.5-3(2.5)mg/3ml) 3 ml Q4H PRN HHN Shortness of Breath 10/29/16 11:30 11/03/16 11:29 10/29/16 11:30 Alprazolam (Xanax) 0.25 mg DAILY PRN ORAL For Anxiety 10/28/16 08:00 11/04/16 07:59 Ceftriaxone Sodium/Sodium Chloride (Rocephin/Sodium Chloride) 55 ml @ 110 mls/hr Q24H IVPB 10/30/16 20:00 11/04/16 19:59 10/31/16 20:40 Clonidine HCl (Catapres) 0.1 mg EVERY 6 HOURS PRN ORAL For High Blood Pressure 10/28/16 08:00 11/27/16 07:59 Dextrose (Dextrose 50%) STAT PRN IV Hypoglycemia 10/28/16 07:45 11/27/16 07:44 Diphenhydramine HCl (Benadryl) 25 mg Q4H PRN IVP Itching 10/31/16 20:30 11/30/16 20:29 10/31/16 20:40 Docusate Sodium (Colace) 100 mg DAILY ORAL 10/28/16 09:00 11/27/16 08:59 11/01/16 08:28 Escitalopram Oxalate (Lexapro) 10 mg DAILY ORAL 10/28/16 09:00 11/27/16 08:59 11/01/16 08:28 Furosemide (Lasix) 20 mg BID IV 10/28/16 09:00 11/27/16 08:59 11/01/16 08:28 Metoprolol Succinate (Toprol XL) 50 mg DAILY ORAL 10/28/16 09:00 11/27/16 08:59 10/31/16 08:45 Multivitamins (Multivitamins) 1 tab DAILY ORAL 10/28/16 09:00 11/27/16 08:59 11/01/16 08:28 Nitroglycerin (Ntg) 0.4 mg Q5M PRN SL Prn Chest Pain 10/28/16 07:45 11/27/16 07:44 Pantoprazole (Protonix) 40 mg DAILY ORAL 10/28/16 09:00 11/27/16 08:59 11/01/16 08:27 Polyethylene Glycol (Miralax) 17 gm DAILY PRN ORAL Constipation 10/29/16 06:15 11/28/16 06:14 10/29/16 06:20 Potassium Chloride (K-Dur) 10 meq DAILY ORAL 10/28/16 09:00 11/27/16 08:59 11/01/16 08:28 Pravastatin Sodium (Pravachol) 80 mg BEDTIME ORAL 10/28/16 21:00 11/27/16 20:59 10/31/16 20:40 Sucralfate 1 gm 1 gm FOUR TIMES A DAY ORAL 10/29/16 18:00 11/28/16 17:59 11/01/16 12:24 Tramadol HCl (Ultram) 100 mg EVERY 8 HOURS PRN ORAL Moderate Pain (Pain Scale 4-6) 10/28/16 08:00 11/04/16 07:59 10/29/16 09:06 Warfarin Sodium (Coumadin per pharmacy) 1 ea DAILY PRN MISC Per rx protocol 10/28/16 08:00 11/27/16 07:59 RUSS ANDRADE Nov 01, 2016 13:51
--- NOTE | 2016-11-01 14:13 | Cardiac Electrophysiology PN ---
Assessment/Plan Assessment/Plan 1. Status post [place] Mitral valve [place] [address] Gaming[address]Has severe MR by echo. On anticoagulation with Coumadin. 2. Congestive heart failure. Could be due to severe MR and TR. EF 55%. On Lasix 20 mg IV b.i.d. Right thoracentesis pending today. 3. Atrial fibrillation. Continue Toprol-XL 50 mg daily. Coumadin held for thoracentesis today. 4. Hypertension. Continue Toprol and p.r.n. clonidine. 5. S/P Dual chamber Medtronic pacer. 6. Pneumonia, on Zithromax and Rocephin. 7. Hyperlipidemia, on Pravachol 80. 8. Severe TR and pulmonary HTN. DE RN Subjective Subjective No chest pain or SOB.Alert in NAD. Remained V pacing at 60. Objective Last 24 Hour Vital Signs Date Time Temp Pulse Resp B/P Pulse Ox O2 Delivery O2 Flow Rate FiO2 11/01/16 12:00 60 11/01/16 11:16 97.0 60 20 139/53 95 Nasal Cannula 2.0 11/01/16 08:29 60 11/01/16 08:00 60 11/01/16 07:43 97.2 61 20 142/54 97 Nasal Cannula 2.0 11/01/16 06:42 Nasal Cannula 2.0 11/01/16 06:42 60 16 Nasal Cannula 2.0 11/01/16 06:42 99 Nasal Cannula 2.0 11/01/16 04:00 60 11/01/16 00:00 65 10/31/16 20:11 Nasal Cannula 2.0 28 10/31/16 20:11 96 Nasal Cannula 2.0 28 10/31/16 20:10 66 16 Nasal Cannula 2.0 28 10/31/16 20:00 63 10/31/16 20:00 98.1 60 20 141/58 98 Nasal Cannula 2.0 10/31/16 16:00 60 10/31/16 16:00 97.2 64 21 132/61 98 Nasal Cannula 2.0 Intake and Output 10/31/16 11/01/16 19:00 07:00 Intake Total 240 ml 355 ml Balance 240 ml 355 ml Intake Oral 240 ml 300 ml IV Total 55 ml # Voids 2 5 # Bowel Movements 1 Laboratory Tests Test 11/01/16 03:40 White Blood Count 7.2 K/UL (4.8-10.8) Red Blood Count 3.61 M/UL (4.20-5.40) L Hemoglobin 9.5 G/DL (12.0-16.0) L Hematocrit 32.0 % (37.0-47.0) L Mean Corpuscular Volume 89 FL (80-99) Mean Corpuscular Hemoglobin 26.5 PG (27.0-31.0) L Mean Corpuscular Hemoglobin Concent 29.8 G/DL (32.0-36.0) L Red Cell Distribution Width 15.8 % (11.6-14.8) H Platelet Count 177 K/UL (150-450) Mean Platelet Volume 6.3 FL (6.5-10.1) L Neutrophils (%) (Auto) 72.4 % (45.0-75.0) Lymphocytes (%) (Auto) 15.8 % (20.0-45.0) L Monocytes (%) (Auto) 10.1 % (1.0-10.0) H Eosinophils (%) (Auto) 0.7 % (0.0-3.0) Basophils (%) (Auto) 1.0 % (0.0-2.0) Prothrombin Time 16.4 SEC (9.30-11.50) H Prothromb Time International Ratio 1.6 (0.9-1.1) H Activated Partial Thromboplast Time 31 SEC (23-33) Sodium Level 146 mEQ/L (135-145) H Potassium Level 3.1 mEQ/L (3.4-4.9) L Chloride Level 99 mEQ/L (98-107) Carbon Dioxide Level 39 mEQ/L (20-30) H Anion Gap 8 (5-15) Blood Urea Nitrogen 21 mg/dL (7-23) Creatinine 0.9 mg/dL (0.5-0.9) Estimat Glomerular Filtration Rate mL/min (>60) Glucose Level 98 mg/dL (74-106) Calcium Level 9.1 mg/dL (8.6-10.2) Pro-B-Type Natriuretic Peptide 3219 pg/mL (0-450) H Objective HEAD AND NECK: Mild JVD. LUNGS: Clear. CARDIOVASCULAR: Sternotomy is intact. The left subclavian pacemaker is intact. ABDOMEN: Soft. EXTREMITIES: Have no pitting edema. TOLUIE,BILL Nov 01, 2016 14:13
[2016-11-01] MEDS ORDERED: LASIX40 MG ORAL (15:12)
[2016-11-01] MEDS ORDERED: POTASSIUM CHLO10 ME3 ORAL (15:12)
--- NOTE | 2016-11-01 15:22 | Internal Med Progress Note ---
Subjective Date of Service: Nov 01, 2016 Physician Name YunLuca Attending Physician Tony Gonzales MD Current Medications Medications (Trade) Dose Ordered Sig/Nataliia Route PRN Reason Start Time Stop Time Status Last Admin Dose Admin Acetaminophen (Tylenol) 650 mg Q6H PRN ORAL Mild Pain/Temp > 100.5 10/28/16 08:00 11/27/16 07:59 Albuterol/ Ipratropium (DuoNeb 0.5-3(2.5)mg/3ml) 3 ml Q4H PRN HHN Shortness of Breath 10/29/16 11:30 11/03/16 11:29 10/29/16 11:30 Alprazolam (Xanax) 0.25 mg DAILY PRN ORAL For Anxiety 10/28/16 08:00 11/04/16 07:59 Ceftriaxone Sodium/Sodium Chloride (Rocephin/Sodium Chloride) 55 ml @ 110 mls/hr Q24H IVPB 10/30/16 20:00 11/04/16 19:59 10/31/16 20:40 Clonidine HCl (Catapres) 0.1 mg EVERY 6 HOURS PRN ORAL For High Blood Pressure 10/28/16 08:00 11/27/16 07:59 Dextrose (Dextrose 50%) STAT PRN IV Hypoglycemia 10/28/16 07:45 11/27/16 07:44 Diphenhydramine HCl (Benadryl) 25 mg Q4H PRN IVP Itching 10/31/16 20:30 11/30/16 20:29 10/31/16 20:40 Docusate Sodium (Colace) 100 mg DAILY ORAL 10/28/16 09:00 11/27/16 08:59 11/01/16 08:28 Escitalopram Oxalate (Lexapro) 10 mg DAILY ORAL 10/28/16 09:00 11/27/16 08:59 11/01/16 08:28 Furosemide (Lasix) 20 mg BID IV 10/28/16 09:00 11/27/16 08:59 11/01/16 08:28 Metoprolol Succinate (Toprol XL) 50 mg DAILY ORAL 10/28/16 09:00 11/27/16 08:59 10/31/16 08:45 Multivitamins (Multivitamins) 1 tab DAILY ORAL 10/28/16 09:00 11/27/16 08:59 11/01/16 08:28 Nitroglycerin (Ntg) 0.4 mg Q5M PRN SL Prn Chest Pain 10/28/16 07:45 11/27/16 07:44 Pantoprazole (Protonix) 40 mg DAILY ORAL 10/28/16 09:00 11/27/16 08:59 11/01/16 08:27 Polyethylene Glycol (Miralax) 17 gm DAILY PRN ORAL Constipation 10/29/16 06:15 11/28/16 06:14 10/29/16 06:20 Potassium Chloride (K-Dur) 10 meq DAILY ORAL 10/28/16 09:00 11/27/16 08:59 11/01/16 08:28 Pravastatin Sodium (Pravachol) 80 mg BEDTIME ORAL 10/28/16 21:00 11/27/16 20:59 10/31/16 20:40 Sucralfate 1 gm 1 gm FOUR TIMES A DAY ORAL 10/29/16 18:00 11/28/16 17:59 11/01/16 12:24 Tramadol HCl (Ultram) 100 mg EVERY 8 HOURS PRN ORAL Moderate Pain (Pain Scale 4-6) 10/28/16 08:00 11/04/16 07:59 10/29/16 09:06 Warfarin Sodium (Coumadin per pharmacy) 1 ea DAILY PRN MISC Per rx protocol 10/28/16 08:00 11/27/16 07:59 Allergies: Coded Allergies: No Known Allergies (Unverified , 08/30/14) ROS Limited/Unobtainable: No Constitutional: Reports: no symptoms HEENT: Reports: no symptoms Cardiovascular: Reports: no symptoms Respiratory: Reports: shortness of breath Gastrointestinal/Abdominal: Reports: no symptoms Genitourinary: Reports: no symptoms Neurologic/Psychiatric: Reports: no symptoms Subjective 86 YO F admitted for shortness of Breath, now congestive heart failure. Right thoracentesis today. Await discharge to [facility] on 11/01/16. Cover for Int Lucio-Dr Gonzales. Objective Last Vital Signs Date Time Temp Pulse Resp B/P Pulse Ox O2 Delivery O2 Flow Rate FiO2 11/01/16 12:00 60 11/01/16 11:16 97.0 20 139/53 95 Nasal Cannula 2.0 3/30/17 20:11 28 Laboratory Tests Test 11/01/16 03:40 White Blood Count 7.2 K/UL (4.8-10.8) Red Blood Count 3.61 M/UL (4.20-5.40) L Hemoglobin 9.5 G/DL (12.0-16.0) L Hematocrit 32.0 % (37.0-47.0) L Mean Corpuscular Volume 89 FL (80-99) Mean Corpuscular Hemoglobin 26.5 PG (27.0-31.0) L Mean Corpuscular Hemoglobin Concent 29.8 G/DL (32.0-36.0) L Red Cell Distribution Width 15.8 % (11.6-14.8) H Platelet Count 177 K/UL (150-450) Mean Platelet Volume 6.3 FL (6.5-10.1) L Neutrophils (%) (Auto) 72.4 % (45.0-75.0) Lymphocytes (%) (Auto) 15.8 % (20.0-45.0) L Monocytes (%) (Auto) 10.1 % (1.0-10.0) H Eosinophils (%) (Auto) 0.7 % (0.0-3.0) Basophils (%) (Auto) 1.0 % (0.0-2.0) Prothrombin Time 16.4 SEC (9.30-11.50) H Prothromb Time International Ratio 1.6 (0.9-1.1) H Activated Partial Thromboplast Time 31 SEC (23-33) Sodium Level 146 mEQ/L (135-145) H Potassium Level 3.1 mEQ/L (3.4-4.9) L Chloride Level 99 mEQ/L (98-107) Carbon Dioxide Level 39 mEQ/L (20-30) H Anion Gap 8 (5-15) Blood Urea Nitrogen 21 mg/dL (7-23) Creatinine 0.9 mg/dL (0.5-0.9) Estimat Glomerular Filtration Rate mL/min (>60) Glucose Level 98 mg/dL (74-106) Calcium Level 9.1 mg/dL (8.6-10.2) Pro-B-Type Natriuretic Peptide 3219 pg/mL (0-450) H Intake and Output 10/31/16 11/01/16 19:00 07:00 Intake Total 240 ml 355 ml Balance 240 ml 355 ml Intake Oral 240 ml 300 ml IV Total 55 ml # Voids 2 5 # Bowel Movements 1 Objective General Appearance: no apparent distress, alert, mild distress EENT: PERRL/EOMI, normal ENT inspection, TMs normal Neck: non-tender, normal alignment, supple Cardiovascular: normal peripheral pulses, normal rate, regular rhythm, no gallop/murmur, no JVD Respiratory/Chest: chest wall non-tender, crackles/rales, rhonchi - bilaterally Abdomen: normal bowel sounds, non tender, soft, no organomegaly, no mass Extremities: normal range of motion, non-tender 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 See pulmonary note. (2) HTN (hypertension) Assessment & Plan: Cont toprol XL (3) Hypercholesteremia (4) Major depression (5) SOB (shortness of breath) (6) CHF (congestive heart failure) Assessment & Plan: LVEF=55%. see cardiology note. Continue lasix. (7) Pneumonia Assessment & Plan: Continue azithromycin and ceftriaxone. (8) Heart valve replaced Status: progressing Assessment/Plan Discharge planning: [facility] with [facility] when stable. LUCA DUNBAR Nov 01, 2016 15:22
--- NOTE | 2016-11-01 15:36 | Diagnostic Imaging Report ---
Indications: Pleural effusion Technique: Ultrasound used to localize optimal puncture site. Sterile prepping and draping of the right lower chest performed. Local anesthesia with 1% lidocaine. Dermatotomy made. Puncture of the pleural space using thoracentesis needle. Stylet removed. Catheter placed to vacuum bottle suction. Fluid was aspirated. Patient tolerated procedure well, without immediate complication. Findings: Followup sonography demonstrates complete resolution of pleural fluid. Followup chest x-ray is pending. Impression: Successful ultrasound-guided right thoracentesis, yielding 1.2 liters of fluid
--- NOTE | 2016-11-01 15:44 | Diagnostic Imaging Report ---
Indication: Chest Pain Comparison: None A single view chest radiograph was obtained. Findings: There is a pneumothorax on the right following thoracentesis. There is thickening of the visceral pleura suggestive of noncompliance. This is likely a trapped lung. There is interstitial edema present. Sternotomy and cardiomegaly are noted. Impression: A moderate size right pneumothorax likely on the basis of a trapped lung. Followup chest will be performed. Patient remains asymptomatic and does not complain of shortness of breath.
[2016-11-01 16:00] VITALS: BP 136/63
--- NOTE | 2016-11-01 17:18 | Diagnostic Imaging Report ---
Indication: Pneumothorax. Followup Comparison: None A single view chest radiograph was obtained. Findings: Right-sided pneumothorax again demonstrated. The pneumothorax appears stable, probably slightly smaller, certainly no larger. Patient remains asymptomatic. Tried to discuss placing a thoracic vent but the patient does not speak Brazilian. Findings discussed with Dr. Gonzales and will obtain followup. Impression: Right pneumothorax appears to be any smaller. Recommend followup tomorrow.
[2016-11-01] MEDS ORDERED: Warfarin Sodium 5mg ORAL SCH (18:00)
[2016-11-01 20:00] VITALS: BP 156/87
[2016-11-01] MEDS: cefTRIAXone 1 GM in NS 55 ML IVPB SCH (21:25)
[2016-11-01 22:40] LABS: APPEARANCE, BODY FLUID HAZY; BD FL SOURCE THORACENTESIS; BD FL VOLUME 24 mL
[2016-11-01 23:01] LABS: BODY FLUID NUCLEATED CELLS 63 /CUMM; BODY FLUID RBC 6080 /CUMM
[2016-11-01 23:09] LABS: MONONUCLEAR WBC 85 %; POLYMORPHONUCLEAR WBC 7 %
[2016-11-02 00:15] VITALS: BP 117/56
[2016-11-02 07:33] VITALS: BP 158/64
[2016-11-02 07:46] LABS: BASOPHILS % (AUTO) 0.8 % (0.0-2.0); EOSINOPHILS % (AUTO) 0.4 % (0.0-3.0); LYMPHOCYTES % (AUTO) 13.5 % (20.0-45.0); MEAN CORPUSCULAR HEMOGLOBIN 26.2 PG (27.0-31.0); MEAN CORPUSCULAR HGB CONC 29.9 G/DL (32.0-36.0); MEAN CORPUSCULAR VOLUME 88 FL (80-99); MEAN PLATELET VOLUME 6.7 FL (6.5-10.1); MONOCYTES % (AUTO) 9.4 % (1.0-10.0); PLATELET COUNT 196 K/UL (150-450); RED BLOOD COUNT 3.79 M/UL (4.20-5.40); RED CELL DISTRIBUTION WIDTH 15.6 % (11.6-14.8); WHITE BLOOD COUNT 8.8 K/UL (4.8-10.8)
[2016-11-02 07:53] LABS: INR 1.6 (0.9-1.1); PROTHROMBIN TIME 16.6 SEC (9.30-11.50)
[2016-11-02 08:00] LABS: ALANINE AMINOTRANSFERASE 10 U/L (3-33); ALBUMIN/GLOBULIN RATIO 1.2 (1.0-2.7); ANION GAP 12 (5-15); ASPARTATE AMINO TRANSFERASE 19 U/L (5-40); CARBON DIOXIDE 36 mEQ/L (20-30); CHLORIDE 95 mEQ/L (98-107); CREATININE 0.7 mg/dL (0.5-0.9); HEMOLYSIS 0; POTASSIUM 3.4 mEQ/L (3.4-4.9); SODIUM 143 mEQ/L (135-145); TOTAL PROTEIN 6.4 g/dL (6.6-8.7)
[2016-11-02] MEDS: Docusate 100mg tablet ORAL SCH (08:18)
[2016-11-02] MEDS: Sucralfate 1gm tab ORAL SCH ×4 (08:19→20:19)
--- NOTE | 2016-11-02 11:01 | Diagnostic Imaging Report ---
Indications: DYSPNEA Technique: Portable AP chest Findings: Comparison: 11/01/16 Cardiomegaly, pulmonary vascular redistribution, bilateral interstitial infiltrates, bibasal pleural effusions persist, unchanged. No abnormality identified. IMPRESSION: Stable bilateral congestive changes
[2016-11-02 11:32] VITALS: BP 125/48
--- NOTE | 2016-11-02 13:03 | Cardiac Electrophysiology PN ---
Assessment/Plan Status Narrative A moderate size right pneumothorax likely on the basis of a trapped lung. Assessment/Plan 1. Status post S[place] Mitral [place] [address] Gaming.Has severe MR by echo. On anticoagulation with Coumadin. 2. Congestive heart failure. Could be due to severe MR and TR. EF 55%. On Lasix 20 mg IV b.i.d. S/P Right thoracentesis yesterday. 3. Atrial fibrillation. Continue Toprol-XL 50 mg daily. Coumadin held for thoracentesis 4. Post Thoracentesis Moderate Pneumothorax. CXR twice post thoracentesis showed stable X ray. Getting ABG. Further evaluation by Dr Mckeon. 5. Hypertension. Continue Toprol and p.r.n. clonidine. 6. S/P Dual chamber Medtronic pacer. 7. Pneumonia, on Zithromax and Rocephin. 8. Hyperlipidemia, on Pravachol 80. 9. Severe TR and pulmonary HTN. DW RN and Dr Malcolm Subjective Subjective Has right sided chest pain likely due to pneumothorax post Thoracentesis.Alert in NAD. Remained V pacing at 60. Objective Last 24 Hour Vital Signs Date Time Temp Pulse Resp B/P Pulse Ox O2 Delivery O2 Flow Rate FiO2 11/02/16 11:32 98.4 60 20 125/48 97 Nasal Cannula 2.0 11/02/16 08:19 60 158/64 11/02/16 08:15 92 16 Nasal Cannula 2.0 11/02/16 08:15 Nasal Cannula 2.0 11/02/16 08:15 98 Nasal Cannula 2.0 11/02/16 07:33 97.2 60 20 158/64 95 Nasal Cannula 2.0 11/02/16 04:00 60 11/02/16 00:15 98.0 60 20 117/56 99 Room Air 11/02/16 00:00 60 11/01/16 20:10 Nasal Cannula 2.0 11/01/16 20:10 61 16 Nasal Cannula 2.0 11/01/16 20:10 98 Nasal Cannula 2.0 11/01/16 20:00 100.9 61 19 156/87 98 Room Air 11/01/16 20:00 61 11/01/16 16:00 60 11/01/16 16:00 97.7 68 18 136/63 90 Nasal Cannula 2.0 Intake and Output 11/01/16 11/02/16 19:00 07:00 Intake Total 480 ml 360 ml Output Total 350 ml Balance 130 ml 360 ml Intake Oral 480 ml 250 ml IV Total 110 ml Output Urine Total 350 ml # Voids 1 2 # Bowel Movements 1 Laboratory Tests Test 11/01/16 15:00 11/02/16 06:47 Body Fluid Source Thoracentesis Body Fluid Volume 24 mL Body Fluid Appearance Hazy Body Fluid RBC 6080 /CUMM Body Fluid Total Nucleated Cells 63 /CUMM Body Fluid Polynuclear WBCs (%) 7 % Body Fluid Mononuclear WBCs (%) 85 % Body Fluid Mesothelial Cells (%) 8 % Body Fluid Glucose Pending Body Fluid Total Protein Pending Body Fluid Albumin Pending White Blood Count 8.8 K/UL (4.8-10.8) Red Blood Count 3.79 M/UL (4.20-5.40) L Hemoglobin 9.9 G/DL (12.0-16.0) L Hematocrit 33.2 % (37.0-47.0) L Mean Corpuscular Volume 88 FL (80-99) Mean Corpuscular Hemoglobin 26.2 PG (27.0-31.0) L Mean Corpuscular Hemoglobin Concent 29.9 G/DL (32.0-36.0) L Red Cell Distribution Width 15.6 % (11.6-14.8) H Platelet Count 196 K/UL (150-450) Mean Platelet Volume 6.7 FL (6.5-10.1) Neutrophils (%) (Auto) 76.0 % (45.0-75.0) H Lymphocytes (%) (Auto) 13.5 % (20.0-45.0) L Monocytes (%) (Auto) 9.4 % (1.0-10.0) Eosinophils (%) (Auto) 0.4 % (0.0-3.0) Basophils (%) (Auto) 0.8 % (0.0-2.0) Prothrombin Time 16.6 SEC (9.30-11.50) H Prothromb Time International Ratio 1.6 (0.9-1.1) H Sodium Level 143 mEQ/L (135-145) Potassium Level 3.4 mEQ/L (3.4-4.9) Chloride Level 95 mEQ/L (98-107) L Carbon Dioxide Level 36 mEQ/L (20-30) H Anion Gap 12 (5-15) Blood Urea Nitrogen 16 mg/dL (7-23) Creatinine 0.7 mg/dL (0.5-0.9) Estimat Glomerular Filtration Rate mL/min (>60) Glucose Level 101 mg/dL (74-106) Calcium Level 9.0 mg/dL (8.6-10.2) Total Bilirubin 0.4 mg/dL (0.0-1.2) Aspartate Amino Transf (AST/SGOT) 19 U/L (5-40) Alanine Aminotransferase (ALT/SGPT) 10 U/L (3-33) Alkaline Phosphatase 42 U/L (35-104) Total Protein 6.4 g/dL (6.6-8.7) L Albumin 3.6 g/dL (3.5-5.2) Globulin 2.8 g/dL Albumin/Globulin Ratio 1.2 (1.0-2.7) Current Medications Medications (Trade) Dose Ordered Sig/Nataliia Route PRN Reason Start Time Stop Time Status Last Admin Dose Admin Acetaminophen (Tylenol) 650 mg Q6H PRN ORAL Mild Pain/Temp > 100.5 10/28/16 08:00 11/27/16 07:59 Albuterol/ Ipratropium (DuoNeb 0.5-3(2.5)mg/3ml) 3 ml Q4H PRN HHN Shortness of Breath 10/29/16 11:30 11/03/16 11:29 10/29/16 11:30 Alprazolam (Xanax) 0.25 mg DAILY PRN ORAL For Anxiety 10/28/16 08:00 11/04/16 07:59 Ceftriaxone Sodium/Sodium Chloride (Rocephin/Sodium Chloride) 55 ml @ 110 mls/hr Q24H IVPB 10/30/16 20:00 11/04/16 19:59 11/01/16 21:25 Clonidine HCl (Catapres) 0.1 mg EVERY 6 HOURS PRN ORAL For High Blood Pressure 10/28/16 08:00 11/27/16 07:59 Dextrose (Dextrose 50%) STAT PRN IV Hypoglycemia 10/28/16 07:45 11/27/16 07:44 Diphenhydramine HCl (Benadryl) 25 mg Q4H PRN IVP Itching 10/31/16 20:30 11/30/16 20:29 10/31/16 20:40 Docusate Sodium (Colace) 100 mg DAILY ORAL 10/28/16 09:00 11/27/16 08:59 11/02/16 08:18 Escitalopram Oxalate (Lexapro) 10 mg DAILY ORAL 10/28/16 09:00 11/27/16 08:59 11/02/16 08:19 Furosemide (Lasix) 20 mg BID IV 10/28/16 09:00 11/27/16 08:59 11/02/16 08:18 Metoprolol Succinate (Toprol XL) 50 mg DAILY ORAL 10/28/16 09:00 11/27/16 08:59 10/31/16 08:45 Multivitamins (Multivitamins) 1 tab DAILY ORAL 10/28/16 09:00 11/27/16 08:59 11/02/16 08:19 Nitroglycerin (Ntg) 0.4 mg Q5M PRN SL Prn Chest Pain 10/28/16 07:45 11/27/16 07:44 Pantoprazole (Protonix) 40 mg DAILY ORAL 10/28/16 09:00 11/27/16 08:59 11/02/16 08:19 Polyethylene Glycol (Miralax) 17 gm DAILY PRN ORAL Constipation 10/29/16 06:15 11/28/16 06:14 10/29/16 06:20 Potassium Chloride (K-Dur) 10 meq DAILY ORAL 10/28/16 09:00 11/27/16 08:59 11/02/16 08:18 Pravastatin Sodium (Pravachol) 80 mg BEDTIME ORAL 10/28/16 21:00 11/27/16 20:59 11/01/16 21:25 Sucralfate 1 gm 1 gm FOUR TIMES A DAY ORAL 10/29/16 18:00 11/28/16 17:59 11/02/16 08:19 Tramadol HCl (Ultram) 100 mg EVERY 8 HOURS PRN ORAL Moderate Pain (Pain Scale 4-6) 10/28/16 08:00 11/04/16 07:59 10/29/16 09:06 Warfarin Sodium (Coumadin per pharmacy) 1 ea DAILY PRN MISC Per rx protocol 10/28/16 08:00 11/27/16 07:59 Warfarin Sodium (Coumadin) 5 mg COUMADIN ONCE ORAL 11/02/16 17:00 11/02/16 17:01 Microbiology Date/Time Source Procedure Growth Status 11/01/16 15:00 Ascities Fluid Gram Stain - Final Resulted 11/01/16 15:00 Ascities Fluid Body Fluid Culture - Preliminary NO GROWTH Resulted Objective HEAD AND NECK: Mild JVD. LUNGS: Clear. CARDIOVASCULAR: Sternotomy is intact. The left subclavian pacemaker is intact. ABDOMEN: Soft. EXTREMITIES: Have no pitting edema. BILL GILES Nov 02, 2016 13:03
[2016-11-02 13:27] LABS: ABG ALLEN TEST POSITIVE; ABG BASE EXCESS 9.8; ABG PCO2 49.7 mmHg (35.0-45.0)
--- NOTE | 2016-11-02 13:49 | Pulmonology Progress Note ---
Assessment/Plan Assessment/Plan ASSESSMENT diastolic CHF HTN chronic A fib pacemaker bilateral pleural effusion s/p thoracentesis R pleural effusion 10/31 pneumothorax 2 to thoracentesis-resolved possible PNA severe pulmonary HTN valvular heart disease: severe MR and severe TR hyperlipidemia hx of mitral valve replacement 2011 PLAN OF CARE tele O2 HHN prn last CXR 11/02 no pneumothorax ABG today, 11/02 on RA stable, no need for O2 for home use empiric abx for possible PNA sputum cx if able troponin x 3 negative ECG pacing cardio r/o for acute [place] ECHO with EF 55% and RVSP of 98 c/ severe pulmonary HTN ECHO also revealed severe MR and severe TR CT chest with large bilateral pleural effusion R>L, compressive atelectasis, picture c/w pulmonary edema , paratracheal lymphadenopathy reactive vs neoplastic rate controlled with BB, on Coumadin , keep INR in therapeutic range ( was n hold for tap, thus today-1.6 subtherapeutic) BP management with BB and prn Clonidine cardio follows continue statin case discussed and evaluated by supervising physician Subjective Allergies: Coded Allergies: No Known Allergies (Unverified , 08/30/14) Subjective on O2 via NC sat stable denies chest pain, SOB, sitting int eh chair Objective Last 24 Hour Vital Signs Date Time Temp Pulse Resp B/P Pulse Ox O2 Delivery O2 Flow Rate FiO2 11/02/16 11:32 98.4 60 20 125/48 97 Nasal Cannula 2.0 11/02/16 08:19 60 158/64 11/02/16 08:15 92 16 Nasal Cannula 2.0 11/02/16 08:15 Nasal Cannula 2.0 11/02/16 08:15 98 Nasal Cannula 2.0 11/02/16 07:33 97.2 60 20 158/64 95 Nasal Cannula 2.0 11/02/16 04:00 60 11/02/16 00:15 98.0 60 20 117/56 99 Room Air 11/02/16 00:00 60 11/01/16 20:10 Nasal Cannula 2.0 11/01/16 20:10 61 16 Nasal Cannula 2.0 11/01/16 20:10 98 Nasal Cannula 2.0 11/01/16 20:00 100.9 61 19 156/87 98 Room Air 11/01/16 20:00 61 11/01/16 16:00 60 11/01/16 16:00 97.7 68 18 136/63 90 Nasal Cannula 2.0 Intake and Output 11/01/16 11/02/16 19:00 07:00 Intake Total 480 ml 360 ml Output Total 350 ml Balance 130 ml 360 ml Intake Oral 480 ml 250 ml IV Total 110 ml Output Urine Total 350 ml # Voids 1 2 # Bowel Movements 1 General Appearance: no acute distress HEENT: normocephalic, atraumatic, anicteric, mucous membranes moist Respiratory/Chest: lungs clear, normal breath sounds, no respiratory distress, no accessory muscle use, other - Left chest pacemaker Cardiovascular: normal peripheral pulses, normal rate - pacing with underlying A fib Abdomen: normal bowel sounds, soft, non tender, non distended Genitourinary: normal external genitalia Extremities: no edema, pedal pulses normal Neurologic/Psychiatric: alert, responsive, normal mood/affect Musculoskeletal: normal muscle bulk Microbiology Date/Time Source Procedure Growth Status 11/01/16 15:00 Ascities Fluid Gram Stain - Final Resulted 11/01/16 15:00 Ascities Fluid Body Fluid Culture - Preliminary NO GROWTH Resulted Laboratory Tests 11/01/16 15:00: Body Fluid Source Thoracentesis, Body Fluid Volume 24, Body Fluid Appearance Hazy, Body Fluid RBC 6080, Body Fluid Total Nucleated Cells 63, Body Fluid Polynuclear WBCs (%) 7, Body Fluid Mononuclear WBCs (%) 85, Body Fluid Mesothelial Cells (%) 8, Body Fluid Glucose [Pending], Body Fluid Total Protein [Pending], Body Fluid Albumin [Pending] 11/02/16 06:47: White Blood Count 8.8, Red Blood Count 3.79L, Hemoglobin 9.9L, Hematocrit 33.2L , Mean Corpuscular Volume 88, Mean Corpuscular Hemoglobin 26.2L, Mean Corpuscular Hemoglobin Concent 29.9L, Red Cell Distribution Width 15.6H, Platelet Count 196, Mean Platelet Volume 6.7, Neutrophils (%) (Auto) 76.0H, Lymphocytes (%) (Auto) 13.5L, Monocytes (%) (Auto) 9.4, Eosinophils (%) (Auto) 0.4, Basophils (%) (Auto) 0.8, Prothrombin Time 16.6H, Prothromb Time International Ratio 1.6H, Sodium Level 143, Potassium Level 3.4, Chloride Level 95L, Carbon Dioxide Level 36H, Anion Gap 12, Blood Urea Nitrogen 16, Creatinine 0.7, Estimat Glomerular Filtration Rate , Glucose Level 101, Calcium Level 9.0, Total Bilirubin 0.4, Aspartate Amino Transf (AST/SGOT) 19, Alanine Aminotransferase (ALT/SGPT) 10, Alkaline Phosphatase 42, Total Protein 6.4L, Albumin 3.6, Globulin 2.8, Albumin/Globulin Ratio 1.2 11/02/16 13:00: Arterial Blood pH 7.464H, Arterial Blood Partial Pressure CO2 49.7H, Arterial Blood Partial Pressure O2 66.6L, Arterial Blood HCO3 34.9H, Arterial Blood Oxygen Saturation 93.4, Arterial Blood Base Excess 9.8, Gurmeet Test Positive Current Medications Medications (Trade) Dose Ordered Sig/Nataliia Route PRN Reason Start Time Stop Time Status Last Admin Dose Admin Acetaminophen (Tylenol) 650 mg Q6H PRN ORAL Mild Pain/Temp > 100.5 10/28/16 08:00 11/27/16 07:59 Albuterol/ Ipratropium (DuoNeb 0.5-3(2.5)mg/3ml) 3 ml Q4H PRN HHN Shortness of Breath 10/29/16 11:30 11/03/16 11:29 10/29/16 11:30 Alprazolam (Xanax) 0.25 mg DAILY PRN ORAL For Anxiety 10/28/16 08:00 11/04/16 07:59 Ceftriaxone Sodium/Sodium Chloride (Rocephin/Sodium Chloride) 55 ml @ 110 mls/hr Q24H IVPB 10/30/16 20:00 11/04/16 19:59 11/01/16 21:25 Clonidine HCl (Catapres) 0.1 mg EVERY 6 HOURS PRN ORAL For High Blood Pressure 10/28/16 08:00 11/27/16 07:59 Dextrose (Dextrose 50%) STAT PRN IV Hypoglycemia 10/28/16 07:45 11/27/16 07:44 Diphenhydramine HCl (Benadryl) 25 mg Q4H PRN IVP Itching 10/31/16 20:30 11/30/16 20:29 10/31/16 20:40 Docusate Sodium (Colace) 100 mg DAILY ORAL 10/28/16 09:00 11/27/16 08:59 11/02/16 08:18 Escitalopram Oxalate (Lexapro) 10 mg DAILY ORAL 10/28/16 09:00 11/27/16 08:59 11/02/16 08:19 Furosemide (Lasix) 20 mg BID IV 10/28/16 09:00 11/27/16 08:59 11/02/16 08:18 Metoprolol Succinate (Toprol XL) 50 mg DAILY ORAL 10/28/16 09:00 11/27/16 08:59 10/31/16 08:45 Multivitamins (Multivitamins) 1 tab DAILY ORAL 10/28/16 09:00 11/27/16 08:59 11/02/16 08:19 Nitroglycerin (Ntg) 0.4 mg Q5M PRN SL Prn Chest Pain 10/28/16 07:45 11/27/16 07:44 Pantoprazole (Protonix) 40 mg DAILY ORAL 10/28/16 09:00 11/27/16 08:59 11/02/16 08:19 Polyethylene Glycol (Miralax) 17 gm DAILY PRN ORAL Constipation 10/29/16 06:15 11/28/16 06:14 10/29/16 06:20 Potassium Chloride (K-Dur) 10 meq DAILY ORAL 10/28/16 09:00 11/27/16 08:59 11/02/16 08:18 Pravastatin Sodium (Pravachol) 80 mg BEDTIME ORAL 10/28/16 21:00 11/27/16 20:59 11/01/16 21:25 Sucralfate 1 gm 1 gm FOUR TIMES A DAY ORAL 10/29/16 18:00 11/28/16 17:59 11/02/16 08:19 Tramadol HCl (Ultram) 100 mg EVERY 8 HOURS PRN ORAL Moderate Pain (Pain Scale 4-6) 10/28/16 08:00 11/04/16 07:59 10/29/16 09:06 Warfarin Sodium (Coumadin per pharmacy) 1 ea DAILY PRN MISC Per rx protocol 10/28/16 08:00 11/27/16 07:59 Warfarin Sodium (Coumadin) 5 mg COUMADIN ONCE ORAL 11/02/16 17:00 11/02/16 17:01 Jerome StantonKaity ortiz NP Nov 02, 2016 13:49
--- NOTE | 2016-11-02 14:02 | Internal Med Progress Note ---
Subjective Date of Service: Nov 02, 2016 Physician Name Luca Dunbar Attending Physician Tony Gonzales MD Current Medications Medications (Trade) Dose Ordered Sig/Nataliia Route PRN Reason Start Time Stop Time Status Last Admin Dose Admin Acetaminophen (Tylenol) 650 mg Q6H PRN ORAL Mild Pain/Temp > 100.5 10/28/16 08:00 11/27/16 07:59 Albuterol/ Ipratropium (DuoNeb 0.5-3(2.5)mg/3ml) 3 ml Q4H PRN HHN Shortness of Breath 10/29/16 11:30 11/03/16 11:29 10/29/16 11:30 Alprazolam (Xanax) 0.25 mg DAILY PRN ORAL For Anxiety 10/28/16 08:00 11/04/16 07:59 Ceftriaxone Sodium/Sodium Chloride (Rocephin/Sodium Chloride) 55 ml @ 110 mls/hr Q24H IVPB 10/30/16 20:00 11/04/16 19:59 11/01/16 21:25 Clonidine HCl (Catapres) 0.1 mg EVERY 6 HOURS PRN ORAL For High Blood Pressure 10/28/16 08:00 11/27/16 07:59 Dextrose (Dextrose 50%) STAT PRN IV Hypoglycemia 10/28/16 07:45 11/27/16 07:44 Diphenhydramine HCl (Benadryl) 25 mg Q4H PRN IVP Itching 10/31/16 20:30 11/30/16 20:29 10/31/16 20:40 Docusate Sodium (Colace) 100 mg DAILY ORAL 10/28/16 09:00 11/27/16 08:59 11/02/16 08:18 Escitalopram Oxalate (Lexapro) 10 mg DAILY ORAL 10/28/16 09:00 11/27/16 08:59 11/02/16 08:19 Furosemide (Lasix) 20 mg BID IV 10/28/16 09:00 11/27/16 08:59 11/02/16 08:18 Metoprolol Succinate (Toprol XL) 50 mg DAILY ORAL 10/28/16 09:00 11/27/16 08:59 10/31/16 08:45 Multivitamins (Multivitamins) 1 tab DAILY ORAL 10/28/16 09:00 11/27/16 08:59 11/02/16 08:19 Nitroglycerin (Ntg) 0.4 mg Q5M PRN SL Prn Chest Pain 10/28/16 07:45 11/27/16 07:44 Pantoprazole (Protonix) 40 mg DAILY ORAL 10/28/16 09:00 11/27/16 08:59 11/02/16 08:19 Polyethylene Glycol (Miralax) 17 gm DAILY PRN ORAL Constipation 10/29/16 06:15 11/28/16 06:14 10/29/16 06:20 Potassium Chloride (K-Dur) 10 meq DAILY ORAL 10/28/16 09:00 11/27/16 08:59 11/02/16 08:18 Pravastatin Sodium (Pravachol) 80 mg BEDTIME ORAL 10/28/16 21:00 11/27/16 20:59 11/01/16 21:25 Sucralfate 1 gm 1 gm FOUR TIMES A DAY ORAL 10/29/16 18:00 11/28/16 17:59 11/02/16 13:40 Tramadol HCl (Ultram) 100 mg EVERY 8 HOURS PRN ORAL Moderate Pain (Pain Scale 4-6) 10/28/16 08:00 11/04/16 07:59 10/29/16 09:06 Warfarin Sodium (Coumadin per pharmacy) 1 ea DAILY PRN MISC Per rx protocol 10/28/16 08:00 11/27/16 07:59 Warfarin Sodium (Coumadin) 5 mg COUMADIN ONCE ORAL 11/02/16 17:00 11/02/16 17:01 Allergies: Coded Allergies: No Known Allergies (Unverified , 08/30/14) ROS Limited/Unobtainable: No Constitutional: Reports: no symptoms HEENT: Reports: no symptoms Cardiovascular: Reports: no symptoms Respiratory: Reports: shortness of breath Gastrointestinal/Abdominal: Reports: no symptoms Genitourinary: Reports: no symptoms Neurologic/Psychiatric: Reports: no symptoms Subjective 86 YO F admitted for shortness of Breath, now congestive heart failure. Right thoracentesis on 11/01/16; now right PNEUMOTHORAX. Hold discharge to [facility]. Cover for Int Med-Dr Gonzales. Objective Last Vital Signs Date Time Temp Pulse Resp B/P Pulse Ox O2 Delivery O2 Flow Rate FiO2 4/1/17 11:32 98.4 60 20 125/48 97 Nasal Cannula 2.0 10/31/16 20:11 28 Laboratory Tests Test 11/01/16 15:00 11/02/16 06:47 11/02/16 13:00 Body Fluid Source Thoracentesis Body Fluid Volume 24 mL Body Fluid Appearance Hazy Body Fluid RBC 6080 /CUMM Body Fluid Total Nucleated Cells 63 /CUMM Body Fluid Polynuclear WBCs (%) 7 % Body Fluid Mononuclear WBCs (%) 85 % Body Fluid Mesothelial Cells (%) 8 % Body Fluid Glucose Pending Body Fluid Total Protein Pending Body Fluid Albumin Pending White Blood Count 8.8 K/UL (4.8-10.8) Red Blood Count 3.79 M/UL (4.20-5.40) L Hemoglobin 9.9 G/DL (12.0-16.0) L Hematocrit 33.2 % (37.0-47.0) L Mean Corpuscular Volume 88 FL (80-99) Mean Corpuscular Hemoglobin 26.2 PG (27.0-31.0) L Mean Corpuscular Hemoglobin Concent 29.9 G/DL (32.0-36.0) L Red Cell Distribution Width 15.6 % (11.6-14.8) H Platelet Count 196 K/UL (150-450) Mean Platelet Volume 6.7 FL (6.5-10.1) Neutrophils (%) (Auto) 76.0 % (45.0-75.0) H Lymphocytes (%) (Auto) 13.5 % (20.0-45.0) L Monocytes (%) (Auto) 9.4 % (1.0-10.0) Eosinophils (%) (Auto) 0.4 % (0.0-3.0) Basophils (%) (Auto) 0.8 % (0.0-2.0) Prothrombin Time 16.6 SEC (9.30-11.50) H Prothromb Time International Ratio 1.6 (0.9-1.1) H Sodium Level 143 mEQ/L (135-145) Potassium Level 3.4 mEQ/L (3.4-4.9) Chloride Level 95 mEQ/L (98-107) L Carbon Dioxide Level 36 mEQ/L (20-30) H Anion Gap 12 (5-15) Blood Urea Nitrogen 16 mg/dL (7-23) Creatinine 0.7 mg/dL (0.5-0.9) Estimat Glomerular Filtration Rate mL/min (>60) Glucose Level 101 mg/dL (74-106) Calcium Level 9.0 mg/dL (8.6-10.2) Total Bilirubin 0.4 mg/dL (0.0-1.2) Aspartate Amino Transf (AST/SGOT) 19 U/L (5-40) Alanine Aminotransferase (ALT/SGPT) 10 U/L (3-33) Alkaline Phosphatase 42 U/L (35-104) Total Protein 6.4 g/dL (6.6-8.7) L Albumin 3.6 g/dL (3.5-5.2) Globulin 2.8 g/dL Albumin/Globulin Ratio 1.2 (1.0-2.7) Arterial Blood pH 7.464 (7.350-7.450) Arterial Blood Partial Pressure CO2 49.7 mmHg (35.0-45.0) H Arterial Blood Partial Pressure O2 66.6 mmHg (75.0-100.0) L Arterial Blood HCO3 34.9 mmol/L (22.0-26.0) H Arterial Blood Oxygen Saturation 93.4 % (92.0-98.0) Arterial Blood Base Excess 9.8 Gurmeet Test Positive Microbiology Date/Time Source Procedure Growth Status 11/01/16 15:00 Ascities Fluid Gram Stain - Final Resulted 11/01/16 15:00 Ascities Fluid Body Fluid Culture - Preliminary NO GROWTH Resulted Intake and Output 11/01/16 11/02/16 19:00 07:00 Intake Total 480 ml 360 ml Output Total 350 ml Balance 130 ml 360 ml Intake Oral 480 ml 250 ml IV Total 110 ml Output Urine Total 350 ml # Voids 1 2 # Bowel Movements 1 Objective General Appearance: no apparent distress, alert, mild distress EENT: PERRL/EOMI, normal ENT inspection, TMs normal Neck: non-tender, normal alignment, supple Cardiovascular: normal peripheral pulses, normal rate, regular rhythm, no gallop/murmur, no JVD Respiratory/Chest: chest wall non-tender, crackles/rales, rhonchi - bilaterally Abdomen: normal bowel sounds, non tender, soft, no organomegaly, no mass Extremities: normal range of motion, non-tender Neurologic: bowling ball molder II-XII grossly normal, no motor/sensory deficits Skin: normal pigmentation, warm/dry Assessment/Plan Problem List: (1) Pleural effusion Assessment & Plan: Right thoracentesis today. See pulmonary note. (2) HTN (hypertension) Assessment & Plan: Cont toprol XL (3) Hypercholesteremia (4) Major depression (5) SOB (shortness of breath) (6) CHF (congestive heart failure) Assessment & Plan: LVEF=55%. see cardiology note. Continue lasix. (7) Pneumonia Assessment & Plan: Continue azithromycin and ceftriaxone. (8) Heart valve replaced (9) Pneumothorax, acute Assessment & Plan: Right. S/P thoracentesis. Follow pulm recs. Status: not improved Assessment/Plan Hold Discharge to [facility] with [facility] when stable because of pneumothorax. LUCA DUNBAR Nov 02, 2016 14:02
[2016-11-02] MEDS ORDERED: Norco 5mg/325mg tab ORAL PRN (14:15)
[2016-11-02 16:00] VITALS: BP 141/43
[2016-11-02] MEDS ORDERED: Warfarin Sodium 5mg ORAL ONE (17:00)
[2016-11-02 19:00] VITALS: BP 148/67
[2016-11-02] MEDS: cefTRIAXone 1 GM in NS 55 ML IVPB SCH (20:19)
[2016-11-02 21:07] LABS: PROTEIN, BODY FLUID 2.2 g/dL (.)
[2016-11-03] VITALS: BP 134/67
[2016-11-03 04:00] VITALS: BP 142/56
[2016-11-03 07:48] LABS: BASOPHILS % (AUTO) 1.2 % (0.0-2.0); LYMPHOCYTES % (AUTO) 17.5 % (20.0-45.0); MEAN CORPUSCULAR HEMOGLOBIN 26.8 PG (27.0-31.0); MEAN CORPUSCULAR HGB CONC 30.6 G/DL (32.0-36.0); MEAN CORPUSCULAR VOLUME 88 FL (80-99); MEAN PLATELET VOLUME 6.6 FL (6.5-10.1); MONOCYTES % (AUTO) 10.9 % (1.0-10.0); NEUTROPHILS % (AUTO) 70.4 % (45.0-75.0); PLATELET COUNT 189 K/UL (150-450); PROTHROMBIN TIME 20.5 SEC (9.30-11.50); RED BLOOD COUNT 3.58 M/UL (4.20-5.40); RED CELL DISTRIBUTION WIDTH 15.4 % (11.6-14.8); WHITE BLOOD COUNT 7.9 K/UL (4.8-10.8)
[2016-11-03 07:57] LABS: ANION GAP 12 (5-15); CALCIUM 8.8 mg/dL (8.6-10.2); CARBON DIOXIDE 35 mEQ/L (20-30); CHLORIDE 99 mEQ/L (98-107); CREATININE 0.7 mg/dL (0.5-0.9); HEMOLYSIS 3; POTASSIUM 3.5 mEQ/L (3.4-4.9); SODIUM 146 mEQ/L (135-145)
[2016-11-03 08:00] VITALS: BP 127/51
[2016-11-03] MEDS ORDERED: Tubing IV Secondary IV ONE (09:00)
[2016-11-03] MEDS ORDERED: NS 275ml ONE (09:00)
[2016-11-03] MEDS: Sucralfate 1gm tab ORAL SCH ×2 (09:21→13:19)
[2016-11-03] MEDS: Docusate 100mg tablet ORAL SCH (09:21)
[2016-11-03 09:37] VITALS: BP 127/51
[2016-11-03 09:40] VITALS: BP 124/51
--- NOTE | 2016-11-03 11:42 | Pulmonology Progress Note ---
Assessment/Plan Assessment/Plan ASSESSMENT diastolic CHF HTN chronic A fib pacemaker bilateral pleural effusion s/p thoracentesis R pleural effusion 10/31 pneumothorax 2 to thoracentesis-resolved possible PNA severe pulmonary HTN valvular heart disease: severe MR and severe TR hyperlipidemia hx of mitral valve replacement 2011 PLAN OF CARE tele O2 HHN prn last CXR 11/02 no pneumothorax , stable congestive changes ABG 11/02 on RA stable, no need for O2 for home use empiric abx for possible PNA sputum cx if able troponin x 3 negative ECG pacing cardio r/o for acute [place] ECHO with EF 55% and RVSP of 98 c/ severe pulmonary HTN ECHO also revealed severe MR and severe TR CT chest with large bilateral pleural effusion R>L, compressive atelectasis, picture c/w pulmonary edema , paratracheal lymphadenopathy reactive vs neoplastic rate controlled with BB, on Coumadin , keep INR in therapeutic range ( was n hold for tap, thus today-1.6 subtherapeutic) BP management with BB and prn Clonidine cardio follows continue statin dc plan as per PMD. stable case discussed and evaluated by supervising physician Subjective Allergies: Coded Allergies: No Known Allergies (Unverified , 08/30/14) Subjective on O2 via NC sat stable denies chest pain, SOB, Objective Last 24 Hour Vital Signs Date Time Temp Pulse Resp B/P Pulse Ox O2 Delivery O2 Flow Rate FiO2 11/03/16 09:40 98.1 60 17 124/51 98 Nasal Cannula 2.0 11/03/16 09:37 98.1 60 17 127/51 98 Nasal Cannula 2.0 11/03/16 09:00 60 11/03/16 08:11 99 Nasal Cannula 2.0 28 11/03/16 08:11 Nasal Cannula 2.0 28 11/03/16 08:00 98.0 60 17 127/51 98 Room Air 11/03/16 07:11 62 14 Nasal Cannula 2.0 28 11/03/16 04:00 98.1 60 16 142/56 99 Nasal Cannula 2.0 28 11/03/16 04:00 60 11/03/16 00:00 97.0 63 16 134/67 95 Nasal Cannula 2.0 28 11/03/16 00:00 60 11/02/16 20:00 60 11/02/16 19:30 Nasal Cannula 2.0 28 11/02/16 19:30 84 16 Nasal Cannula 2.0 28 11/02/16 19:30 95 Nasal Cannula 2.0 28 11/02/16 19:00 97.0 63 20 148/67 Room Air 11/02/16 16:00 96.9 60 17 141/43 97 Room Air 11/02/16 16:00 60 11/02/16 12:00 60 Intake and Output 11/02/16 11/03/16 19:00 07:00 Intake Total 240 ml 535 ml Balance 240 ml 535 ml Intake Oral 240 ml 480 ml IV Total 55 ml # Voids 2 5 Objective General Appearance: no acute distress HEENT: normocephalic, atraumatic, anicteric, mucous membranes moist Respiratory/Chest: lungs clear, normal breath sounds, no respiratory distress, no accessory muscle use, Left chest pacemaker Cardiovascular: normal peripheral pulses, pacing with underlying A fib Abdomen: normal bowel sounds, soft, non tender, non distended Genitourinary: normal external genitalia Extremities: no edema, pedal pulses normal Neurologic/Psychiatric: alert, responsive, normal mood/affect Musculoskeletal: normal muscle bulk Microbiology Date/Time Source Procedure Growth Status 11/01/16 15:00 Ascities Fluid Gram Stain - Final Resulted 11/01/16 15:00 Ascities Fluid Body Fluid Culture - Preliminary NO GROWTH AFTER 48 HOURS Resulted Laboratory Tests 11/02/16 13:00: Arterial Blood pH 7.464H, Arterial Blood Partial Pressure CO2 49.7H, Arterial Blood Partial Pressure O2 66.6L, Arterial Blood HCO3 34.9H, Arterial Blood Oxygen Saturation 93.4, Arterial Blood Base Excess 9.8, Gurmeet Test Positive 11/03/16 06:29: White Blood Count 7.9, Red Blood Count 3.58L, Hemoglobin 9.6L, Hematocrit 31.4L , Mean Corpuscular Volume 88, Mean Corpuscular Hemoglobin 26.8L, Mean Corpuscular Hemoglobin Concent 30.6L, Red Cell Distribution Width 15.4H, Platelet Count 189, Mean Platelet Volume 6.6, Neutrophils (%) (Auto) 70.4, Lymphocytes (%) (Auto) 17.5L, Monocytes (%) (Auto) 10.9H, Eosinophils (%) (Auto ) 0.0, Basophils (%) (Auto) 1.2, Prothrombin Time 20.5H, Prothromb Time International Ratio 2.0H, Sodium Level 146H, Potassium Level 3.5, Chloride Level 99, Carbon Dioxide Level 35H, Anion Gap 12, Blood Urea Nitrogen 17, Creatinine 0.7, Estimat Glomerular Filtration Rate , Glucose Level 93, Calcium Level 8.8 Current Medications Medications (Trade) Dose Ordered Sig/Nataliia Route PRN Reason Start Time Stop Time Status Last Admin Dose Admin Acetaminophen (Tylenol) 650 mg Q6H PRN ORAL Mild Pain/Temp > 100.5 10/28/16 08:00 11/27/16 07:59 Acetaminophen/ Hydrocodone Bitart ([place] 5/325) 1 tab Q4H PRN ORAL Moderate Pain (Pain Scale 4-6) 11/02/16 14:15 11/09/16 14:14 Alprazolam (Xanax) 0.25 mg DAILY PRN ORAL For Anxiety 10/28/16 08:00 11/04/16 07:59 Ceftriaxone Sodium/Sodium Chloride (Rocephin/Sodium Chloride) 55 ml @ 110 mls/hr Q24H IVPB 10/30/16 20:00 11/04/16 19:59 11/02/16 20:19 Clonidine HCl (Catapres) 0.1 mg EVERY 6 HOURS PRN ORAL For High Blood Pressure 10/28/16 08:00 11/27/16 07:59 Dextrose (Dextrose 50%) STAT PRN IV Hypoglycemia 10/28/16 07:45 11/27/16 07:44 Diphenhydramine HCl (Benadryl) 25 mg Q4H PRN IVP Itching 10/31/16 20:30 11/30/16 20:29 10/31/16 20:40 Docusate Sodium (Colace) 100 mg DAILY ORAL 10/28/16 09:00 11/27/16 08:59 11/03/16 09:21 Escitalopram Oxalate (Lexapro) 10 mg DAILY ORAL 10/28/16 09:00 11/27/16 08:59 11/03/16 09:21 Furosemide (Lasix) 20 mg BID IV 10/28/16 09:00 11/27/16 08:59 11/03/16 09:22 Metoprolol Succinate (Toprol XL) 50 mg DAILY ORAL 10/28/16 09:00 11/27/16 08:59 10/31/16 08:45 Multivitamins (Multivitamins) 1 tab DAILY ORAL 10/28/16 09:00 11/27/16 08:59 11/03/16 09:21 Nitroglycerin (Ntg) 0.4 mg Q5M PRN SL Prn Chest Pain 10/28/16 07:45 11/27/16 07:44 Pantoprazole (Protonix) 40 mg DAILY ORAL 10/28/16 09:00 11/27/16 08:59 11/03/16 09:21 Polyethylene Glycol (Miralax) 17 gm DAILY PRN ORAL Constipation 10/29/16 06:15 11/28/16 06:14 10/29/16 06:20 Potassium Chloride (K-Dur) 10 meq DAILY ORAL 10/28/16 09:00 11/27/16 08:59 11/03/16 09:21 Pravastatin Sodium (Pravachol) 80 mg BEDTIME ORAL 10/28/16 21:00 11/27/16 20:59 11/02/16 20:19 Sucralfate 1 gm 1 gm FOUR TIMES A DAY ORAL 10/29/16 18:00 11/28/16 17:59 11/03/16 09:21 Tramadol HCl (Ultram) 100 mg EVERY 8 HOURS PRN ORAL Moderate Pain (Pain Scale 4-6) 10/28/16 08:00 11/04/16 07:59 10/29/16 09:06 Warfarin Sodium (Coumadin per pharmacy) 1 ea DAILY PRN MISC Per rx protocol 10/28/16 08:00 11/27/16 07:59 Warfarin Sodium (Coumadin) 3 mg COUMADIN ONCE ORAL 11/03/16 17:00 11/03/16 17:01 [facility]obaWest[facility] Square [facility] CenterKaity ortiz NP Nov 03, 2016 11:42
[2016-11-03 12:00] VITALS: BP 135/53
--- NOTE | 2016-11-03 13:48 | Internal Med Progress Note ---
Subjective Date of Service: Nov 03, 2016 Physician Name Luca Dunbar Attending Physician Tony Gonzales MD Current Medications Medications (Trade) Dose Ordered Sig/Nataliia Route PRN Reason Start Time Stop Time Status Last Admin Dose Admin Acetaminophen (Tylenol) 650 mg Q6H PRN ORAL Mild Pain/Temp > 100.5 10/28/16 08:00 11/27/16 07:59 Acetaminophen/ Hydrocodone Bitart ([place] 5/325) 1 tab Q4H PRN ORAL Moderate Pain (Pain Scale 4-6) 11/02/16 14:15 11/09/16 14:14 Alprazolam (Xanax) 0.25 mg DAILY PRN ORAL For Anxiety 10/28/16 08:00 11/04/16 07:59 Ceftriaxone Sodium/Sodium Chloride (Rocephin/Sodium Chloride) 55 ml @ 110 mls/hr Q24H IVPB 10/30/16 20:00 11/04/16 19:59 11/02/16 20:19 Clonidine HCl (Catapres) 0.1 mg EVERY 6 HOURS PRN ORAL For High Blood Pressure 10/28/16 08:00 11/27/16 07:59 Dextrose (Dextrose 50%) STAT PRN IV Hypoglycemia 10/28/16 07:45 11/27/16 07:44 Diphenhydramine HCl (Benadryl) 25 mg Q4H PRN IVP Itching 10/31/16 20:30 11/30/16 20:29 10/31/16 20:40 Docusate Sodium (Colace) 100 mg DAILY ORAL 10/28/16 09:00 11/27/16 08:59 11/03/16 09:21 Escitalopram Oxalate (Lexapro) 10 mg DAILY ORAL 10/28/16 09:00 11/27/16 08:59 11/03/16 09:21 Furosemide (Lasix) 20 mg BID IV 10/28/16 09:00 11/27/16 08:59 11/03/16 09:22 Metoprolol Succinate (Toprol XL) 50 mg DAILY ORAL 10/28/16 09:00 11/27/16 08:59 10/31/16 08:45 Multivitamins (Multivitamins) 1 tab DAILY ORAL 10/28/16 09:00 11/27/16 08:59 11/03/16 09:21 Nitroglycerin (Ntg) 0.4 mg Q5M PRN SL Prn Chest Pain 10/28/16 07:45 11/27/16 07:44 Pantoprazole (Protonix) 40 mg DAILY ORAL 10/28/16 09:00 11/27/16 08:59 11/03/16 09:21 Polyethylene Glycol (Miralax) 17 gm DAILY PRN ORAL Constipation 10/29/16 06:15 11/28/16 06:14 10/29/16 06:20 Potassium Chloride (K-Dur) 10 meq DAILY ORAL 10/28/16 09:00 11/27/16 08:59 11/03/16 09:21 Pravastatin Sodium (Pravachol) 80 mg BEDTIME ORAL 10/28/16 21:00 11/27/16 20:59 11/02/16 20:19 Sucralfate 1 gm 1 gm FOUR TIMES A DAY ORAL 10/29/16 18:00 11/28/16 17:59 11/03/16 13:19 Tramadol HCl (Ultram) 100 mg EVERY 8 HOURS PRN ORAL Moderate Pain (Pain Scale 4-6) 10/28/16 08:00 11/04/16 07:59 10/29/16 09:06 Warfarin Sodium (Coumadin per pharmacy) 1 ea DAILY PRN MISC Per rx protocol 10/28/16 08:00 11/27/16 07:59 Warfarin Sodium (Coumadin) 3 mg COUMADIN ONCE ORAL 11/03/16 17:00 11/03/16 17:01 Allergies: Coded Allergies: No Known Allergies (Unverified , 08/30/14) ROS Limited/Unobtainable: No Constitutional: Reports: no symptoms HEENT: Reports: no symptoms Cardiovascular: Reports: no symptoms Respiratory: Reports: shortness of breath Gastrointestinal/Abdominal: Reports: no symptoms Genitourinary: Reports: no symptoms Neurologic/Psychiatric: Reports: no symptoms Subjective 86 YO F admitted for shortness of Breath, now congestive heart failure. Right thoracentesis on 11/01/16; now right PNEUMOTHORAX. Hold discharge [facility] [place]. Cover for Int Lucio-Dr Gonzales. Objective Last Vital Signs Date Time Temp Pulse Resp B/P Pulse Ox O2 Delivery O2 Flow Rate FiO2 11/03/16 12:00 96.8 63 18 135/53 98 Room Air 11/03/16 09:40 2.0 11/03/16 08:11 28 Laboratory Tests Test 11/03/16 06:29 White Blood Count 7.9 K/UL (4.8-10.8) Red Blood Count 3.58 M/UL (4.20-5.40) L Hemoglobin 9.6 G/DL (12.0-16.0) L Hematocrit 31.4 % (37.0-47.0) L Mean Corpuscular Volume 88 FL (80-99) Mean Corpuscular Hemoglobin 26.8 PG (27.0-31.0) L Mean Corpuscular Hemoglobin Concent 30.6 G/DL (32.0-36.0) L Red Cell Distribution Width 15.4 % (11.6-14.8) H Platelet Count 189 K/UL (150-450) Mean Platelet Volume 6.6 FL (6.5-10.1) Neutrophils (%) (Auto) 70.4 % (45.0-75.0) Lymphocytes (%) (Auto) 17.5 % (20.0-45.0) L Monocytes (%) (Auto) 10.9 % (1.0-10.0) H Eosinophils (%) (Auto) 0.0 % (0.0-3.0) Basophils (%) (Auto) 1.2 % (0.0-2.0) Prothrombin Time 20.5 SEC (9.30-11.50) H Prothromb Time International Ratio 2.0 (0.9-1.1) H Sodium Level 146 mEQ/L (135-145) H Potassium Level 3.5 mEQ/L (3.4-4.9) Chloride Level 99 mEQ/L (98-107) Carbon Dioxide Level 35 mEQ/L (20-30) H Anion Gap 12 (5-15) Blood Urea Nitrogen 17 mg/dL (7-23) Creatinine 0.7 mg/dL (0.5-0.9) Estimat Glomerular Filtration Rate mL/min (>60) Glucose Level 93 mg/dL (74-106) Calcium Level 8.8 mg/dL (8.6-10.2) Microbiology Date/Time Source Procedure Growth Status 11/01/16 15:00 Ascities Fluid Gram Stain - Final Resulted 11/01/16 15:00 Ascities Fluid Body Fluid Culture - Preliminary NO GROWTH AFTER 48 HOURS Resulted Intake and Output 11/02/16 11/03/16 19:00 07:00 Intake Total 240 ml 535 ml Balance 240 ml 535 ml Intake Oral 240 ml 480 ml IV Total 55 ml # Voids 2 5 Objective General Appearance: no apparent distress, alert, mild distress EENT: PERRL/EOMI, normal ENT inspection, TMs normal Neck: non-tender, normal alignment, supple Cardiovascular: normal peripheral pulses, normal rate, regular rhythm, no gallop/murmur, no JVD Respiratory/Chest: chest wall non-tender, decreased breath sounds right base; crackles/rales, rhonchi - bilaterally Abdomen: normal bowel sounds, non tender, soft, no organomegaly, no mass Extremities: normal range of motion, non-tender Neurologic: lot porter II-XII grossly normal, no motor/sensory deficits Skin: normal pigmentation, warm/dry Assessment/Plan Problem List: (1) Pleural effusion Assessment & Plan: Right thoracentesis today. See pulmonary note. (2) HTN (hypertension) Assessment & Plan: Cont toprol XL (3) Hypercholesteremia (4) Major depression (5) SOB (shortness of breath) (6) CHF (congestive heart failure) Assessment & Plan: LVEF=55%. see cardiology note. Continue lasix. (7) Pneumonia Assessment & Plan: Continue azithromycin and ceftriaxone. (8) Heart valve replaced (9) Pneumothorax, acute Assessment & Plan: Resolving on Right. S/P thoracentesis. Follow pulm recs. Assessment/Plan Hold Discharge to [facility] when stable because of pneumothorax. LUCA DUNBAR Nov 03, 2016 13:48
[2016-11-03] MEDS ORDERED: Warfarin Sodium 3mg ORAL ONE (17:00)
--- NOTE | 2016-11-04 12:18 | Diagnostic Imaging Report ---
Indication: DYSPNEA Technique: One view of the chest Comparison: 11/02/2016 Findings: Left chest pacemaker remains. Bilateral right greater than left pleural effusions, interstitial and alveolar parenchymal opacities persists. Heart is mildly enlarged. Impression: Unchanged, over one day, findings as above.
[2016-11-05 10:37] LABS: COMMENT,BODY FLUID PATHOLOGIST COMMENT
--- NOTE | 2016-11-05 10:55 | Discharge Summary ---
Discharge Summary Hospital Course Date of Admission Oct 28, 2016 at 01:53 Date of Discharge Nov 03, 2016 at 16:20 Admitting Diagnosis HPI Kurt Keyes is a 86 year old female who was admitted on Oct 28, 2016 at 01: 53 for Shortness Of Breath/Pneumonia/Congestive Hospital Course dc summary #[id number] Discharge Medications Changed Medications: Furosemide* (Lasix*) 40 Mg Tablet 40 MG ORAL BID for 30 Days, #60 TAB (Changed from: DAILY) Potassium Chloride (Potassium Chloride) 10 Meq Tablet.er 20 MEQ ORAL DAILY, #30 TAB 0 Refills (Changed from: 10 MEQ) Continued Medications: Acetaminophen (Tylenol) 325 Mg Tab 500 MG ORAL Q6H PRN for Fever/Headache/Mild Pain, #30 TAB 0 Refills Acetaminophen With Codeine #2 Tablet (Acetaminophen With Codeine #2 Tablet) 1 Each Tablet 1 TAB ORAL PRN for For Cough, TAB Amlodipine Besylate (Norvasc) 5 Mg Tab 5 MG ORAL DAILY, TAB Clonidine Hcl (Clonidine Hcl) 0.1 Mg Tablet 0.1 MG PO PRN for For High Blood Pressure, TAB Docusate Sodium* (Docusate Sodium*) 100 Mg Capsule 100 MG ORAL DAILY, CAP Escitalopram Oxalate* (Lexapro*) 10 Mg Tablet 10 MG ORAL DAILY, TAB Lisinopril* (Lisinopril*) 40 Mg Tablet 40 MG ORAL BID, TAB Metoprolol Succinate* (Metoprolol Succinate*) 50 Mg Tab.er.24h 50 MG ORAL DAILY, TAB Pantoprazole* (Protonix*) 40 Mg Tablet.dr 40 MG ORAL DAILY, TAB Pravastatin Sod (Pravachol) 80 Mg Tablet 80 MG ORAL BEDTIME, TAB Tramadol Hcl* (Ultram*) 50 Mg Tablet 100 MG ORAL PRN for For Pain, #30 TAB 0 Refills [Alprazolam*] () 0.25 MG PO DAILY PRN for For Anxiety [Warfarin Sod*] () 3 MG PO DAILY Discontinued Medications: Bacitracin (Bacitracin) 15 Gm Oint...g. 1 APPLIC TOPIC THREE TIMES A DAY PRN for wound, GM Discharge Condition Upon Discharge: stable Discharge Disposition Patient was discharged to Home with Home Health(06) Discharge Diagnoses: Jerome (Adrian)Kaity NP Nov 05, 2016 10:55
--- NOTE | 2016-11-06 02:18 | Discharge Summary 2 SIG ---
DATE OF ADMISSION: 10/28/2016 DATE OF DISCHARGE: 11/03/2016 REASON FOR ADMISSION: 86-year-old female with history of congestive heart failure , status post mitral valve replacement, presented to [facility] emergency department with shortness of breath and difficulties to walk, was able to walk only few steps. Troponin was negative. The patient was transferred to [facility] for insurance purposes afterwards. ADMITTING DIAGNOSES: 1. Shortness of breath. 2. Congestive heart failure. 3. Hypertension. HOSPITAL STAY: The patient was admitted on telemetry floor. Cardiology consult and Pulmonary consult were requested. Supplemental oxygen and pulmonary toilet provided as needed. ABG was done on 11/02/2016 on room air and was stable. No need for oxygen for home use. CT of the chest revealed large bilateral pleural effusion, right more than left, compressive atelectasis, picture consistent with pulmonary edema, and paratracheal lymphadenopathy, reactive versus neoplastic. Subsequently, the patient undergone thoracentesis of right pleural effusion on 10/31/2016, which yielded 1.2 liters of fluid. Chest x-ray after thoracentesis revealed right pneumothorax. Followup chest x-ray the same day in couple of hours revealed smaller pneumothorax and the next day on 11/02/2016, chest x-ray revealed no pneumothorax , CXR repeated on 11/03/2016. no pneumothorax. Pneumothorax spontaneously resolved. The patient was started on empiric antibiotics for possible pneumonia. Sputum culture was unable to be obtained since cough was dry and she declined suctioning. Troponin x3 were negative. [employer]ener followed and ruled out for acute myocardial infarction. Echocardiogram revealed ejection fraction of 55% and right ventricular systolic pressure of 98 consistent with severe pulmonary hypertension. Echo also revealed severe mitral regurgitation and severe tricuspid regurgitation. The patient exhibited evidence of atrial fibrillation. Rate was controlled with beta rich. The patient was on Coumadin to keep INR in therapeutic range, initially Coumadin was on hold for thoracentesis, but resumed afterwards and keep INR between 2 and 3. Blood pressure was managed with beta-rich and as needed clonidine. Statin was continued. The patient was stable for discharge after chest x-ray was negative. Respiratory status stable: shortness of breath improved; no need for home oxygen. Afebrile. No leukocytosis. DISCHARGE DIAGNOSES: 1. Diastolic congestive heart failure. 2. Hypertension. 3. Chronic atrial fibrillation. 4. Pacemaker. 5. Bilateral pleural effusion. 6. Status post thoracentesis, right pleural effusion. 7. Pneumothorax secondary to thoracentesis,- resolved. 8. Possible pneumonia. 9. Severe pulmonary hypertension. 10. Valvular heart disease with severe mitral regurgitation and severe tricuspid regurgitation. 11. Hyperlipidemia. 12. History of mitral valve replacement in 2011. DISCHARGE MEDICATIONS: See medication reconciliation list. DISCHARGE INSTRUCTIONS: The patient was discharged home with home health. FOLLOWUP: Follow up with the primary medical doctor. Tony Gonzales M.D. Kaity CordobaPeconic Bay Medical CenterNeymar N.PJoana DR: HAROON JOB#: [id number] CC: SHARMILA
== END 2016-11-03 16:20 | disposition home health service (06) | DRG 291 ==
LOC: 2E 10-28 01:53
PROC: 30233L1 Transfusion of Nonautologous Fresh Plasma into Peripheral Vein, Percutaneous Approach (ICD-10-PCS; principal; 2016-10-31)
PROC: 0W993ZZ Drainage of Right Pleural Cavity, Percutaneous Approach (ICD-10-PCS; 2016-11-01)
DX: I11.0 Hypertensive heart disease with heart failure (principal); J18.9 Pneumonia, unspecified organism; I27.2 Other secondary pulmonary hypertension; I48.2 Chronic atrial fibrillation; I07.1 Rheumatic tricuspid insufficiency; Z95.2 Presence of prosthetic heart valve; J95.811 Postprocedural pneumothorax; I50.33 Acute on chronic diastolic (congestive) heart failure; E78.5 Hyperlipidemia, unspecified; F32.9 Major depressive disorder, single episode, unspecified; E78.00 Pure hypercholesterolemia, unspecified; F41.9 Anxiety disorder, unspecified; Y84.4 Aspiration of fluid as the cause of abnormal reaction of the patient, or of later complication, without mention of misadventure at the time of the procedure; Y92.239 Unspecified place in hospital as the place of occurrence of the external cause; Z95.0 Presence of cardiac pacemaker
CPT/HCPCS: 36415; 36600; 71010; 71250; 76942; 80048; 80053; 82803; 83735; 83880; 84100; 84484; 85025; 85610; 85730; 86850; 86900; 86901; 86927; 87070; 87205; 88104; 89051; 93306; 94644; 94664; 94760; J7620; J8499

== ENCOUNTER 2016-11-05 20:26 | Emergency (ER) | payer MEDICARE, OTHER ==
[~2016-11-05] VITALS: Ht 152.4 cm; Wt 59.0 kg
[~2016-11-05 20:26] MED LIST changes: +ACETAMINOPHEN-1 EACH ORAL; +ACETAMINOPHEN325 M1 ORAL; +Alprazolam PO; +CLONIDINE HCL0.1 MG PO; +LASIX40 MG ORAL; +POTASSIUM CHLO10 ME3 ORAL; +PRAVACHOL80 MG ORAL; +PROTONIX40 MG ORAL; +TRAMADOL HCL50 MG ORAL; +Warfarin Sod PO
[2016-11-05 20:31] VITALS: BP 129/69
--- NOTE | 2016-11-05 20:57 | Emergency Room Report ---
History of Present Illness General Chief Complaint: General Complaint Source: Patient, EMS Present Illness HPI Patient is an 86-year-old female who presented after increased skin rash. Patient having generalized itchiness worse on her ears as well as her hands. Patient had recent hospitalization for fluid on her lungs. She had some thoracentesis performed. She had no shortness of breath. She reported having increased generalized itching. She been given Benadryl by EMS. The patient was noted to have some confusion after Benadryl. Allergies: Coded Allergies: No Known Allergies (Unverified , 08/30/14) Patient History Past Medical History: see triage record Reviewed Nursing Documentation: PMH: Agreed, PSxH: Agreed Nursing Documentation-PMH Past Medical History: No History, Except For Hx Cardiac Problems: Yes Hx Hypertension: Yes Hx Pacemaker: Yes - Left chest Hx Cancer: No Hx Gastrointestinal Problems: Yes - gerd Hx Neurological Problems: Yes - vertigo Hx Vertigo: Yes Review of Systems All Other Systems: negative except mentioned in HPI Physical Exam Vital Signs Date Time Temp Pulse Resp B/P Pulse Ox O2 Delivery O2 Flow Rate FiO2 11/05/16 20:21 89 20 129/69 99 Room Air Sp02 EP Interpretation: reviewed, normal General Appearance: normal inspection, well appearing, no apparent distress, alert, GCS 15 Head: atraumatic ENT: normal ENT inspection, hearing grossly normal, normal voice Neck: normal inspection, full range of motion, supple, no bony tend Respiratory: normal inspection, lungs clear, normal breath sounds, no respiratory distress, no retraction, no wheezing Cardiovascular #1: regular rate, rhythm, no edema Gastrointestinal: normal inspection, normal bowel sounds, non tender, soft, no guarding, no hernia Genitourinary: no CVA tenderness Musculoskeletal: normal inspection, back normal, normal range of motion Neurologic: normal inspection, alert, oriented x3, responsive, toddler teacher III-XII nml as tested, speech normal Psychiatric: normal inspection, judgement/insight normal, mood/affect normal Skin: other - general urticarial rash Medical Decision Making Diagnostic Impression: Primary Impression: Urticaria ER Course Patient presented for skin rash. Differential diagnosis included was not limited to Brown-Richie syndrome, urticaria, erythema multiforme, contact dermatitis. Patient was given IV Solu-Medrol . Patient was observed in the emergency department had some improvement in urticaria . Patient said she felt better want to go home. Patient's benign exam and does not appear to require any further imaging or laboratory testing at this time. The patient is advised to follow up with primary care doctor in 1-2 days. Patient is advised to return if any worsening condition or if any changes in status that are concerning. Last Vital Signs Date Time Temp Pulse Resp B/P Pulse Ox O2 Delivery O2 Flow Rate FiO2 11/05/16 20:31 20 129/69 99 Room Air 11/05/16 20:21 89 Status: improved Disposition: HOME, SELF-CARE Condition: Stable Scripts Famotidine (PEPCID) 20 Mg Tablet 20 MG ORAL BEDTIME, #7 TAB 0 Refills Prov: Gibson Lee 11/05/16 Prednisone* (PREDNISONE*) 20 Mg Tablet 40 MG ORAL DAILY, #10 TAB Prov: Gibson Lee 11/05/16 Gibson Lee Nov 05, 2016 20:57
[2016-11-05] MEDS ORDERED: Solu-MEDROL 125mg Inj IVP ONE (21:00)
[2016-11-05] MEDS ORDERED: PEPCID20 MG ORAL (21:41)
[2016-11-05] MEDS ORDERED: PREDNISONE20 MG ORAL (21:41)
[2016-11-05 21:46] VITALS: BP 146/68
== END 2016-11-05 21:50 | disposition home or self-care (01) ==
LOC: EDBD 20:26 → EMR 20:57
DX: L50.9 Urticaria, unspecified (principal); I10 Essential (primary) hypertension; Z95.0 Presence of cardiac pacemaker; K21.9 Gastro-esophageal reflux disease without esophagitis
CPT/HCPCS: 96374; 99284; J2930